=== PATIENT | male | born 1960 | race Caucasian/White ===

== ENCOUNTER 2016-11-22 19:34 | Observation (INO) | payer BC, OTHER ==
[~2016-11-22] VITALS: Ht 167.6 cm; Wt 98.1 kg
[~2016-11-22 19:34] MED LIST: ATEN-173 PO; CHOL100010 PO; CLTP PO; FERR325T74 PO; GLUCTAB18 PO; MULT-506 PO; PRT/40 PO
--- NOTE | 2016-11-22 19:48 | EMERGENCY ROOM VISIT NOTE ---
History Report prepared by Oziel: John Whitehead Under the Supervision of: Dr. Mainor Gibbs M.D. First contact with patient: 19:38 Chief Complaint: ABDOMINAL PAIN Stated Complaint: PAIN IN RLQ History of Present Illness The patient is a 56 year old male who presents to the Emergency Room with complaints of persistent right lower quadrant abdominal pain that started mid- day yesterday. He says that he had a bowel movement at a truck stop, and then started driving again. A bit later, he started having the abdominal pain. The patient felt nauseated last night and from time to time, he has been feeling dizzy. He notes that breathing does exacerbate the pain. The patient denies any vomiting, diarrhea, fevers, shortness of breath, chest pain, urinary symptoms, or hematochezia. The patient did take Tylenol yesterday but it did not help. He has a history of a gastric bypass. The patient was here in May for a low iron count and was admitted. Source of History: patient Onset: Mid-day yesterday Position: abdomen (right-sided) Timing: other (persistent) Modifying Factors (Worsening): breathing Associated Symptoms: + nausea, No SOB, No chest pain, No diarrhea, No fevers , No hematochezia, No urinary symptoms, No vomiting Note: Associated symptoms: Intermittent dizziness. Review of Systems See HPI for pertinent positives & negatives. A total of 10 systems reviewed and were otherwise negative. Past Medical & Surgical Medical Problems: (1) Abdominal pain (2) Abdominal pain (3) Appendicitis (4) Dehydration (5) HTN (hypertension) (6) Perforated ulcer Surgical Problems: (1) H/O gastric bypass (2) S/P laparoscopic surgery Family History Heart disease Hypertension Social History Smoking Status: Never Smoker Alcohol Use: occasionally Marital Status: Occupation Status: employed Current/Historical Medications Scheduled Atenolol (Atenolol), 12.5 MG PO DAILY Cholecalciferol (Vitamin D), 4,000 INTER.UNIT PO WK Ferrous Gluconate (Ferrous Gluconate), 324 MG PO DAILY Multivitamin (Multivitamin), 1 TAB PO DAILY Pantoprazole (Pantoprazole Sodium), 40 MG PO DAILY Scheduled PRN Hydrocodone/Acetaminophen 5MG/325MG (Burns 5MG/325MG), 1-2 TABLET PO Q6 PRN for Pain Allergies Coded Allergies: No Known Allergies (Unverified , 11/09/14) Physical Exam Vital Signs Date Time Temp Pulse Resp B/P Pulse Ox O2 Delivery O2 Flow Rate FiO2 11/22/16 20:56 88 18 148/76 96 Room Air 11/22/16 19:37 37.1 92 18 153/82 95 Room Air Physical Exam GENERAL: Patient is uncomfortable-appearing and in mild distress. HEENT: No acute trauma, normocephalic atraumatic, mucous membranes moist, no nasal congestion, no scleral icterus. NECK: No stridor, no adenopathy, no meningismus, trachea is midline. LUNGS: No dyspnea. Clear to auscultation and equal bilaterally. No wheeze, no rhonchi. HEART: Regular rate and rhythm. No murmurs, rubs, gallops appreciated. ABDOMEN: Soft, right lower quadrant tenderness to palpation, bowel sounds positive, no masses appreciated, no peritonitis. BACK: No midline tenderness, no CVA tenderness EXTREMITIES: Normal motion all extremities, no cyanosis, no edema. NEUROLOGIC: Alert and oriented, no acute motor or sensory deficits, no focal weakness, cranial nerves grossly intact. SKIN: No rash, no jaundice, no diaphoresis. Medical Decision & Procedures ER Provider Diagnostic Interpretation: CT results are stated below per my interpretation and the radiologist's interpretation. CT OF THE ABDOMEN AND PELVIS WITH CONTRAST CLINICAL HISTORY: Right lower quadrant pain. COMPARISON STUDY: CT of the abdomen and pelvis November 09, 2014 and renal ultrasound March 09, 2015. TECHNIQUE: Following IV administration of 92 mL of Optiray-320, axial images of the abdomen and pelvis were obtained from the lung bases to the proximal femurs. Images were reviewed in the axial, sagittal, and coronal planes. IV contrast was administered without complication. CT DOSE: 628.56 mGy.cm FINDINGS: A small hiatal hernia is present. Note is made of findings consistent with gastric bypass. There is no evidence for a bowel obstruction. The gallbladder us surgically absent. The liver, spleen, adrenal glands and left kidney are normal. 2 right renal cysts are again noted. There is no free air, pneumatosis or portal venous gas. The appendix is mildly dilated, measuring 1 cm in caliber. There is mild periappendiceal infiltration. There is no free air or abscess. The wall of the appendix is mildly thickened. No lymphadenopathy is present. There is extensive sigmoid diverticulosis without evidence for acute diverticulitis. The bladder is underdistended. Bladder wall thickening is again noted. There is a small fat-containing left inguinal hernia. Mild dilatation of the proximal celiac axis is unchanged. No suspicious skeletal lesions are identified. IMPRESSION: 1. Findings consistent with acute appendicitis. No free air or abscess. 2. Nonspecific bladder wall thickening which is accentuated by underdistention. Electronically signed by: Deshawn Schmitt M.D. 11/22/2016 8:36 PM Dictated Date/Time: 11/22/2016 8:30 PM Laboratory Results 11/22/16 20:00 Red Blood Count 5.10, Mean Corpuscular Volume 83.3, Mean Corpuscular Hemoglobin 28.2, Mean Corpuscular Hemoglobin Concent 33.9, Mean Platelet Volume 11.3, Neutrophils (%) (Auto) 75.8, Lymphocytes (%) (Auto) 13.0, Monocytes (%) (Auto) 10.4, Eosinophils (%) (Auto) 0.3, Basophils (%) (Auto) 0.2, Neutrophils # (Auto ) 7.91, Lymphocytes # (Auto) 1.36, Monocytes # (Auto) 1.09, Eosinophils # (Auto ) 0.03, Basophils # (Auto) 0.02 11/22/16 20:00 Test 11/22/16 20:00 11/22/16 20:12 White Blood Count 10.44 K/uL (4.8-10.8) Red Blood Count 5.10 M/uL (4.7-6.1) Hemoglobin 14.4 g/dL (14.0-18.0) Hematocrit 42.5 % (42-52) Mean Corpuscular Volume 83.3 fL (80-100) Mean Corpuscular Hemoglobin 28.2 pg (25-34) Mean Corpuscular Hemoglobin Concent 33.9 g/dl (32-36) Platelet Count 160 K/uL (130-400) Mean Platelet Volume 11.3 fL (7.4-10.4) Neutrophils (%) (Auto) 75.8 % Lymphocytes (%) (Auto) 13.0 % Monocytes (%) (Auto) 10.4 % Eosinophils (%) (Auto) 0.3 % Basophils (%) (Auto) 0.2 % Neutrophils # (Auto) 7.91 K/uL (1.4-6.5) Lymphocytes # (Auto) 1.36 K/uL (1.2-3.4) Monocytes # (Auto) 1.09 K/uL (0.11-0.59) Eosinophils # (Auto) 0.03 K/uL (0-0.5) Basophils # (Auto) 0.02 K/uL (0-0.2) RDW Standard Deviation 50.5 fL (36.4-46.3) RDW Coefficient of Variation 16.6 % (11.5-14.5) Immature Granulocyte % (Auto) 0.3 % Immature Granulocyte # (Auto) 0.03 K/uL (0.00-0.02) Est Creatinine Clear Calc Drug Dose 111.7 ml/min Estimated GFR () 114.7 Estimated GFR (Non- 99.0 BUN/Creatinine Ratio 17.7 (10-20) Calcium Level 9.2 mg/dl (8.5-10.1) Total Bilirubin 0.6 mg/dl (0.2-1) Direct Bilirubin 0.2 mg/dl (0-0.2) Aspartate Amino Transf (AST/SGOT) 14 U/L (15-37) Alanine Aminotransferase (ALT/SGPT) 18 U/L (12-78) Alkaline Phosphatase 71 U/L (45-117) Total Protein 7.2 gm/dl (6.4-8.2) Albumin 3.9 gm/dl (3.4-5.0) Lipase 107 U/L (73-393) Bedside Hemoglobin 15.3 g/dl (14.0-18.0) Bedside Hematocrit 45 % (42-52) Bedside Sodium 142 mEq/L (135-144) Bedside Potassium 3.8 mEq/L (3.3-5.0) Bedside Chloride 106 mEq/L (101-112) Bedside Total CO2 23 mEq/l (24-31) Anion Gap 18.0 mmol/L (16-25) Bedside Blood Urea Nitrogen 14 mg/dl (7-18) Bedside Creatinine 0.7 mg/dl (0.6-1.3) Bedside Glucose (other) 97 mg/dl (70-99) Bedside Ionized Calcium (Jayro) 1.15 mmol/l (1.12-1.32) Laboratory results as reviewed by me. Medications Administered Medications (Trade) Dose Ordered Sig/Shon Route Start Time Stop Time Status Last Admin Dose Admin Sodium Chloride (Nss 1000ml) 1,000 ml @ 999 mls/hr Q1H1M STAT IV 11/22/16 19:50 11/22/16 20:50 DC 11/22/16 20:54 999 MLS/HR Cefoxitin Sodium (Mefoxin IV) 2,000 mg NOW STAT IV 11/22/16 20:43 11/22/16 20:44 DC 11/22/16 20:55 2,000 MG Hydromorphone HCl (Dilaudid Inj) 1 mg NOW STAT IV 11/22/16 20:49 11/22/16 20:51 DC 11/22/16 20:54 1 MG Ondansetron HCl (Zofran Inj) 4 mg NOW STAT IV 11/22/16 20:49 11/22/16 20:51 DC 11/22/16 20:54 4 MG ED Course 1939: The patient was evaluated in room C4. A complete history and physical exam was performed. 1949: Ordered NSS 1000 ml @ 999 mls/hr IV. 2042: Ordered Mefoxin IV 2000 mg IV. 2048: Ordered Zofran Inj 4 mg IV, Dilaudid Inj 1 mg IV. 2044: I discussed the patient with Dr. Delfino IRAHETA General Surgery - he will evaluate the patient for further treatment. 2045: I reevaluated the patient and he would like something for pain. Medical Decision Differential: Appendicitis, , MSK, Diverticulitis, UTI, Renal Colic, Bowel Obstruction, Aortic Pathology, amongst other pathologies entertained. 56 yr old male with RLQ TTP and pain over last 24-48 hours. Labs look good but with exam felt CT required which revealed acute appendicitis. He is stable, not septic and doing well with some Dilaudid. Given Mefoxin and gen surg in to see pt and took him to OR. Consults Time Called: 2042 Consulting Physician: Dr. Delfino IRAHETA General Surgery Returned Call: 2044 I discussed the patient with Dr. Delfino IRAHETA General Surgery - he will evaluate the patient for further treatment. Impression Primary Impression: Acute appendicitis Scribe Attestation The scribe's documentation has been prepared under my direction and personally reviewed by me in its entirety. I confirm that the note above accurately reflects all work, treatment, procedures, and medical decision making performed by me. Departure Information Dispostion Being Evaluated By Hospitalist Prescriptions Hydrocodone/Acetaminophen 5MG/325MG (Burns 5MG/325MG) Tab 1-2 TABLET PO Q6 Y for Pain, #30 TAB Prov: John Saleh D.O. 11/22/16 Referrals Jayden Awan PA-C (PCP) Patient Instructions My [facility] Problem Qualifiers Primary Impression: Acute appendicitis Acute appendicitis type: with localized peritonitis Qualified Codes: K35.3 - Acute appendicitis with localized peritonitis
[2016-11-22] MEDS ORDERED: SODIUM CHLORIDE 0.9% 1000ML 1,000 ML IV STA (19:50)
[2016-11-22] MEDS ORDERED: OPTIRAY 320 IV PRN (20:00)
[2016-11-22 20:16] LABS: BASO % 0.2 %; BASO ABS # 0.02 K/uL (0-0.2); COMPLETE YES; EOS % 0.3 %; HEMATOCRIT 42.5 % (42-52); IG% 0.3 %; LYMPH ABS # 1.36 K/uL (1.2-3.4); MEAN CELL VOLUME 83.3 fL (80-100); MEAN CORPUSCULAR HEMOGLOBIN 28.2 pg (25-34); MEAN CORPUSCULAR HGB CONC 33.9 g/dl (32-36); MEAN PLATELET VOLUME 11.3 fL (7.4-10.4); MONO % 10.4 %; NEUT % 75.8 %; PLATELET COUNT 160 K/uL (130-400); WHITE BLOOD COUNT 10.44 K/uL (4.8-10.8)
[2016-11-22 20:24] LABS: ISTAT CREATININE 0.7 mg/dl (0.6-1.3); ISTAT HEMOGLOBIN 15.3 g/dl (14.0-18.0); ISTAT IONIZED CALCIUM 1.15 mmol/l (1.12-1.32)
[2016-11-22] MEDS ORDERED: CHOL200010 PO (20:28)
[2016-11-22] MEDS ORDERED: TNR25 PO (20:28)
[2016-11-22] MEDS ORDERED: FERR325T18 PO (20:28)
--- NOTE | 2016-11-22 20:38 | DIAGNOSTIC IMAGING REPORT ---
CT OF THE ABDOMEN AND PELVIS WITH CONTRAST CLINICAL HISTORY: Right lower quadrant pain. COMPARISON STUDY: CT of the abdomen and pelvis November 09, 2014 and renal ultrasound March 09, 2015. TECHNIQUE: Following IV administration of 92 mL of Optiray-320, axial images of the abdomen and pelvis were obtained from the lung bases to the proximal femurs. Images were reviewed in the axial, sagittal, and coronal planes. IV contrast was administered without complication. CT DOSE: 628.56 mGy.cm FINDINGS: A small hiatal hernia is present. Note is made of findings consistent with gastric bypass. There is no evidence for a bowel obstruction. The gallbladder us surgically absent. The liver, spleen, adrenal glands and left kidney are normal. 2 right renal cysts are again noted. There is no free air, pneumatosis or portal venous gas. The appendix is mildly dilated, measuring 1 cm in caliber. There is mild periappendiceal infiltration. There is no free air or abscess. The wall of the appendix is mildly thickened. No lymphadenopathy is present. There is extensive sigmoid diverticulosis without evidence for acute diverticulitis. The bladder is underdistended. Bladder wall thickening is again noted. There is a small fat-containing left inguinal hernia. Mild dilatation of the proximal celiac axis is unchanged. No suspicious skeletal lesions are identified. IMPRESSION: 1. Findings consistent with acute appendicitis. No free air or abscess. 2. Nonspecific bladder wall thickening which is accentuated by underdistention. Electronically signed by: Deshawn Schmitt M.D. 11/22/2016 8:36 PM Dictated Date/Time: 11/22/2016 8:30 PM
[2016-11-22 20:42] LABS: BUN/CREATININE RATIO 17.7 (10-20); CALCIUM 9.2 mg/dl (8.5-10.1); CREATININE 0.79 mg/dl (0.60-1.40); POTASSIUM 3.8 mmol/L (3.5-5.1)
[2016-11-22] MEDS ORDERED: CEFOXITIN SOD 2 GM VIAL IV STA (20:43)
[2016-11-22] MEDS ORDERED: ONDANSETRON INJ 2 MG/ML 2 ML VIAL IV STA (20:49)
[2016-11-22] MEDS ORDERED: ONDANSETRON INJ 2 MG/ML 2 ML VIAL ONE ×2 (20:49→23:37)
[2016-11-22] MEDS ORDERED: HYDROmorphone INJ 1 MG/ML SYR ONE (20:49)
[2016-11-22] MEDS ORDERED: HYDROmorphone INJ 1 MG/ML SYR IV STA (20:49)
--- NOTE | 2016-11-22 21:02 | History and Physical ---
History & Physical Date Nov 22, 2016. Chief Complaint abdominal pain History of Present Illness The patient is a 56 year old male with complaints of mid abdominal pain starting yesterday...worsening and pain now more RLQ. Past Medical/Surgical History Medical Problems: (1) Abdominal pain (2) Abdominal pain (3) Appendicitis (4) Dehydration (5) HTN (hypertension) (6) Perforated ulcer Surgical Problems: (1) H/O gastric bypass (2) S/P laparoscopic surgery Additional History Hepatic Disease: No Endocrine Disorder: No Kidney Disease: No Hypertension: Yes Heart Disease: No Bleeding Tendencies: No Infectious Diseases: No Allergies Coded Allergies: No Known Allergies (Unverified , 11/09/14) Home Medications Scheduled Atenolol (Atenolol), 12.5 MG PO DAILY Cholecalciferol (Vitamin D), 4,000 INTER.UNIT PO WK Ferrous Gluconate (Ferrous Gluconate), 324 MG PO DAILY Multivitamin (Multivitamin), 1 TAB PO DAILY Pantoprazole (Pantoprazole Sodium), 40 MG PO DAILY Physical Examination Skin: warm/dry Eyes: normal inspection, EOMI Head: normocephalic Neck: supple Respiratory/Chest: lungs clear Cardiovascular: regular rate, rhythm, no edema Abdomen / GI: + pertinent finding (diffuse ttp. tender RLQ. mild guarding.) Extremities: normal inspection Diagnosis acute appendicitis Plan of Treatment discussed options/risks of surgery bleeding/infection/abcess/dvt/pe/mi/injury to another organ/leakage etc... questions answered lap/possible open appendectomy tonight.
[2016-11-22] MEDS ORDERED: IV FLUIDS COMPLETED PRN (22:00)
[2016-11-22] MEDS ORDERED: HYDR-5688 PO (22:01)
--- NOTE | 2016-11-22 22:04 | Discharge Instructions ---
Discharge Instructions Admission Reason for Admission: Pain In Rlq Discharge Discharge Diagnosis / Problem: acute appendicitis Discharge Goals Goal(s): Decrease discomfort, Improve function Activity Recommendations Activity Limitations: as noted below Lifting Limitations: no more than 10 pounds Exercise/Sports Limitations: until after follow-up appointment May Resume Sexual Activity: after follow-up appointment Shower/Bathe: tomorrow . Instructions / Follow-Up Instructions / Follow-Up call [phone] for follow up appt with Dr. Saleh Current Hospital Diet Patient's current hospital diet: Discharge Diet Recommended Diet: Regular Diet Procedures Procedures Performed: lap appy Pending Studies Studies pending at discharge: yes (pathology report) List of pending studies: path report Medical Emergencies . Who to Call and When: Medical Emergencies: If at any time you feel your situation is an emergency, please call 911 immediately. . Non-Emergent Contact Non-Emergency issues call your: Primary Care Provider, Surgeon Call Non-Emergent contact if: temperature is above 101, your pain is not controlled, wound has increased drainage, wound has increased redness . "Provider Documentation" section prepared by John Saleh. VTE Core Measure Inpt VTE Proph given/why not?: Enoxaparin (Lovenox)SQ, SCD's
--- NOTE | 2016-11-22 22:05 | [facility] Operative Report ---
Operative Report Operative Date Nov 22, 2016. Pre-Operative Diagnosis acute appendicitis Post-Operative Diagnosis acute appendicitis Procedure(s) Performed lap appy Surgeon jt Findings acutely inflammed appendix Anesthesia get Complication(s) None Disposition Recovery Room / PACU I attest to the content of the Intraoperative Record and any orders documented therein. Any exceptions are noted below.
[2016-11-22] MEDS ORDERED: LIDOCAINE HCL 2% 2 ML VIAL (20MG/ML) ONE (22:08)
[2016-11-22] MEDS ORDERED: MIDAZOLAM HCL 1 MG/ML 2ML VIAL ONE (22:08)
[2016-11-22] MEDS ORDERED: FENTANYL CITRATE INJ 50 MCG/1 ML 2 ML VIAL ONE ×2 (22:08→23:37)
[2016-11-22] MEDS ORDERED: PROPOFOL IV EMULSION 10 MG/ML 20 ML VIAL IV ONE (22:08)
[2016-11-22] MEDS ORDERED: LABETALOL HCL IV 5 MG/ML 20ML IV PRN (22:30)
[2016-11-22] MEDS ORDERED: ONDANSETRON INJ 2 MG/ML 2 ML VIAL IV PRN (22:30)
[2016-11-22] MEDS ORDERED: PROMETHAZINE HCL INJ 12.5 MG in SODIUM CHLORIDE 0.9% 50ML 50 ML IV PRN (22:30)
[2016-11-22] MEDS ORDERED: HYDROmorphone INJ 2 MG/ML SYR/VIAL IV PRN (22:30)
[2016-11-22] MEDS ORDERED: ATROPINE SULFATE 0.1 MG/ML 5ML SYR IV PRN (22:30)
[2016-11-22] MEDS ORDERED: GLYCOPYRROLATE INJ 0.2 MG/ML VIAL ONE (23:37)
[2016-11-22] MEDS ORDERED: METOCLOPRAMIDE HCL INJ 5 MG/ML 2 ML VIAL ONE (23:37)
[2016-11-22] MEDS ORDERED: NEOSTIGMINE METHYLSULFATE 5 MG/5 ML SYR ONE (23:37)
[2016-11-22] MEDS ORDERED: BUPIVACAINE/EPINEPHRINE 0.5% MPF 1:200,000 30 ML VIAL INJ ONE (23:52)
[2016-11-23] VITALS (11 sets, daily range): BP systolic 122–148; BP diastolic 71–90; PULSE 88–107; TEMP 36.7–37.7; O2SAT 92–95; Ht 167.6 cm; Wt 98.1 kg
[2016-11-23] MEDS ORDERED: MEPERIDINE HCL 25 MG/ML CARP IV PRN
--- NOTE | 2016-11-23 00:12 | OPERATIVE REPORT ---
DATE OF OPERATION: 11/22/2016 PREOPERATIVE DIAGNOSIS: Acute appendicitis. POSTOPERATIVE DIAGNOSIS: Same. PROCEDURE: Laparoscopic appendectomy. SURGEON: Dr. Saleh. ESTIMATED BLOOD LOSS: 10 mL COMPLICATIONS: No immediate. ANESTHESIA: General. The patient tolerated the procedure well. OPERATIVE NOTE: After informed consent was obtained, the patient was taken to the operating suite and placed in the supine position. After successful intubation, the left arm was tucked and the lower abdomen was shaved and sterilely prepped and draped in the usual fashion. A periumbilical incision was made with an 11 blade scalpel and carried down through the soft tissue using electrocautery. The anterior rectus fascia was opened using electrocautery and two #0 Vicryl stay sutures were placed. Peritoneum was entered using blunt finger penetration and a finger sweep was performed to take down adhesions. A 12-mm Miguel Angel trocar was placed and the abdomen was insufflated to 18 mmHg. Laparoscope was inserted and the abdomen examined 360 degrees. A left lower quadrant 12-mm port and a suprapubic 5-mm port were all placed under direct vision. The patient was airplaned to the left and placed in a slight Trendelenburg. We went to the right lower quadrant, immediately had an ischemic acutely inflamed appendix. The cecum looked normal at the terminal ileum. I did run the terminal ileum backwards for several feet and did not see any other abnormality. There was no free fluid in the pelvis and I ruptured the appendix. I was able to grasp the appendix at its mid body and elevate it from the side wall. A LUL purple cartridge linear stapler was used to transect the mesoappendix as well as the appendix itself at its base with the cecum. After doing this, it was placed into an EndoCatch bag. We did look around the rest of the abdomen. The patient had a history of prior gastric bypass, I was unable to clearly see his upper abdominal anatomy due to his size. Liver looked normal as did the small and large bowels. I saw no evidence of inguinal or ventral hernias. This completed the procedure. There was adequate hemostasis. The trocars were removed as was the appendix. The abdomen was desufflated. The fascia of the camera port was closed using 0 Vicryl in a [id number] fashion. All the wounds were irrigated and closed using 4-0 Monocryl. Marcaine was injected around them for postoperative analgesia and skin glue used as dressing. The patient was awakened, extubated, and transferred to recovery in stable condition. I attest to the content of the Intraoperative Record and any orders documented therein. Any exceptio ns are noted below.
[2016-11-23] MEDS ORDERED: LACTATED RINGER'S 1000ML 1,000 ML IV SCH (00:16)
[2016-11-23] MEDS ORDERED: ONDANSETRON INJ 2 MG/ML 2 ML VIAL IV PRN (00:30)
[2016-11-23] MEDS ORDERED: MoRPHine SULFATE 10 MG/ML CARP/VIAL IV PRN (00:30)
[2016-11-23] MEDS ORDERED: HYDROCODONE/ACETAMOPHEN 5/325MG TAB PO PRN ×2 (00:30)
[2016-11-23] MEDS ORDERED: ACETAMINOPHEN 325 MG TAB PO PRN (00:30)
--- NOTE | 2016-11-23 00:36 | Anesthesiology Progress Note ---
Anesthesia Post Op Note Date & Time Nov 23, 2016 at 00:36 Vital Signs Pain Intensity: 0 Vital Signs Past 12 Hours Date Time Temp Pulse Resp B/P Pulse Ox O2 Delivery O2 Flow Rate FiO2 11/23/16 00:20 93 24 152/86 95 Mask 5 11/23/16 00:15 98 19 164/86 94 Mask 5 11/23/16 00:10 94 23 168/90 94 Mask 5 11/23/16 00:05 94 18 164/88 95 Mask 5 11/23/16 00:00 94 22 171/93 95 5 11/22/16 23:55 104 20 189/101 94 Mask 5 11/22/16 23:50 102 30 165/122 86 Mask 5 11/22/16 23:45 37.4 103 32 181/98 90 Mask 5 11/22/16 20:56 88 18 148/76 96 Room Air 11/22/16 19:37 37.1 92 18 153/82 95 Room Air Notes Mental Status: alert / awake / arousable, participated in evaluation Pt Amnestic to Procedure: Yes Nausea / Vomiting: adequately controlled Pain: adequately controlled Airway Patency, RR, SpO2: stable & adequate BP & HR: stable & adequate Hydration State: stable & adequate Anesthetic Complications: no major complications apparent
[2016-11-23] MEDS: LACTATED RINGER'S 1000ML 1,000 ML IV SCH ×3 (01:42→12:59)
[2016-11-23] MEDS: MoRPHine SULFATE 4 MG/ML 1 ML CARP\\VIAL IV PRN ×2 (03:16→07:43)
[2016-11-23 07:37] LABS: BASO % 0.1 %; BASO ABS # 0.01 K/uL (0-0.2); COMPLETE YES; HEMATOCRIT 39.2 % (42-52); IG% 0.3 %; LYMPH % 3.8 %; LYMPH ABS # 0.45 K/uL (1.2-3.4); MEAN CELL VOLUME 84.5 fL (80-100); MEAN CORPUSCULAR HEMOGLOBIN 28.2 pg (25-34); MEAN CORPUSCULAR HGB CONC 33.4 g/dl (32-36); NEUT % 86.8 %; PLATELET COUNT 145 K/uL (130-400); RED BLOOD COUNT 4.64 M/uL (4.7-6.1); WHITE BLOOD COUNT 11.93 K/uL (4.8-10.8)
[2016-11-23 07:47] LABS: INR 1.1 (0.9-1.1); PARTIAL THROMBOPLASTIN RATIO 1.1; PROTHROMBIN TIME (PATIENT) 12.3 SECONDS (9.0-12.0)
[2016-11-23 08:04] LABS: BUN/CREATININE RATIO 15.7 (10-20); CALCIUM 8.7 mg/dl (8.5-10.1); CREATININE 0.69 mg/dl (0.60-1.40); POTASSIUM 3.9 mmol/L (3.5-5.1)
[2016-11-23 08:09] LABS: ALB/GLOB RATIO 1.2 (0.9-2)
[2016-11-23] MEDS ORDERED: PANTOprazole SOD 40 MG TAB PO SCH (08:30)
--- NOTE | 2016-11-23 08:38 | Surgery Progress Note ---
Surgery Progress Note Date of Service Nov 23, 2016. Subjective Post OP Day: 1 + feeling well some laparoscopy gas pain. overall feeling well. nathaly liquids Objective Vital Signs: Date Time Temp Pulse Resp B/P Pulse Ox O2 Delivery O2 Flow Rate FiO2 11/23/16 07:16 37.3 98 18 146/90 94 Nasal Cannula 2.0 11/23/16 04:35 37.7 102 16 146/90 95 Room Air 11/23/16 03:30 37.7 107 16 138/80 94 Nasal Cannula 3.0 11/23/16 02:30 37.5 98 16 144/80 94 Nasal Cannula 3.0 11/23/16 02:00 36.9 94 16 148/80 94 Nasal Cannula 3.0 11/23/16 01:58 93 Nasal Cannula 11/23/16 01:43 36.7 99 18 129/71 93 Nasal Cannula 3.0 11/23/16 01:30 36.7 99 16 129/71 93 Nasal Cannula 3.0 11/23/16 01:12 103 19 138/68 91 Nasal Cannula 3 11/23/16 01:02 102 20 139/80 92 Nasal Cannula 3 11/23/16 00:50 95 19 141/76 90 Nasal Cannula 4 11/23/16 00:40 94 20 153/83 90 Nasal Cannula 4 11/23/16 00:30 36.7 96 20 159/82 90 Nasal Cannula 4 11/23/16 00:20 93 24 152/86 95 Mask 5 11/23/16 00:15 98 19 164/86 94 Mask 5 11/23/16 00:10 94 23 168/90 94 Mask 5 11/23/16 00:05 94 18 164/88 95 Mask 5 11/23/16 00:00 94 22 171/93 95 5 11/22/16 23:55 104 20 189/101 94 Mask 5 11/22/16 23:50 102 30 165/122 86 Mask 5 11/22/16 23:45 37.4 103 32 181/98 90 Mask 5 11/22/16 20:56 88 18 148/76 96 Room Air 11/22/16 19:37 37.1 92 18 153/82 95 Room Air General Appearance: no apparent distress Abdomen: non distended, soft Incision(s): clean, dry, intact Laboratory Results: Results Past 24 Hours Test 11/22/16 20:00 11/22/16 20:12 11/23/16 07:05 Range/Units White Blood Count 10.44 11.93 4.8-10.8 K/uL Red Blood Count 5.10 4.64 4.7-6.1 M/uL Hemoglobin 14.4 13.1 14.0-18.0 g/dL Hematocrit 42.5 39.2 42-52 % Mean Corpuscular Volume 83.3 84.5 80-100 fL Mean Corpuscular Hemoglobin 28.2 28.2 25-34 pg Mean Corpuscular Hemoglobin Concent 33.9 33.4 32-36 g/dl Platelet Count 160 145 130-400 K/uL Mean Platelet Volume 11.3 11.0 7.4-10.4 fL Neutrophils (%) (Auto) 75.8 86.8 % Lymphocytes (%) (Auto) 13.0 3.8 % Monocytes (%) (Auto) 10.4 9.0 % Eosinophils (%) (Auto) 0.3 0.0 % Basophils (%) (Auto) 0.2 0.1 % Neutrophils # (Auto) 7.91 10.36 1.4-6.5 K/uL Lymphocytes # (Auto) 1.36 0.45 1.2-3.4 K/uL Monocytes # (Auto) 1.09 1.07 0.11-0.59 K/uL Eosinophils # (Auto) 0.03 0.00 0-0.5 K/uL Basophils # (Auto) 0.02 0.01 0-0.2 K/uL RDW Standard Deviation 50.5 51.8 36.4-46.3 fL RDW Coefficient of Variation 16.6 16.6 11.5-14.5 % Immature Granulocyte % (Auto) 0.3 0.3 % Immature Granulocyte # (Auto) 0.03 0.04 0.00-0.02 K/uL Sodium Level 143 141 136-145 mmol/L Potassium Level 3.8 3.9 3.5-5.1 mmol/L Chloride Level 107 106 98-107 mmol/L Carbon Dioxide Level 23 23 21-32 mmol/L Anion Gap 13.0 18.0 12.0 3-11 mmol/L Blood Urea Nitrogen 14 11 7-18 mg/dl Creatinine 0.79 0.69 0.60-1.40 mg/dl Est Creatinine Clear Calc Drug Dose 111.7 127.9 ml/min Estimated GFR () 114.7 121.3 Estimated GFR (Non- 99.0 104.6 BUN/Creatinine Ratio 17.7 15.7 10-20 Random Glucose 94 121 70-99 mg/dl Calcium Level 9.2 8.7 8.5-10.1 mg/dl Total Bilirubin 0.6 1.7 0.2-1 mg/dl Direct Bilirubin 0.2 0-0.2 mg/dl Aspartate Amino Transf (AST/SGOT) 14 300 15-37 U/L Alanine Aminotransferase (ALT/SGPT) 18 226 12-78 U/L Alkaline Phosphatase 71 160 45-117 U/L Total Protein 7.2 6.3 6.4-8.2 gm/dl Albumin 3.9 3.4 3.4-5.0 gm/dl Lipase 107 73-393 U/L Bedside Hemoglobin 15.3 14.0-18.0 g/dl Bedside Hematocrit 45 42-52 % Bedside Sodium 142 135-144 mEq/L Bedside Potassium 3.8 3.3-5.0 mEq/L Bedside Chloride 106 101-112 mEq/L Bedside Total CO2 23 24-31 mEq/l Bedside Blood Urea Nitrogen 14 7-18 mg/dl Bedside Creatinine 0.7 0.6-1.3 mg/dl Bedside Glucose (other) 97 70-99 mg/dl Bedside Ionized Calcium (Jayro) 1.15 1.12-1.32 mmol/l Prothrombin Time 12.3 9.0-12.0 SECONDS Prothromb Time International Ratio 1.1 0.9-1.1 Activated Partial Thromboplast Time 28.7 21.0-31.0 SECONDS Partial Thromboplastin Ratio 1.1 Globulin 2.9 2.5-4.0 gm/dl Albumin/Globulin Ratio 1.2 0.9-2 Assessment & Plan pod #1 lap appy looks good will walk around/drink this am if does ok, can d/c home later today
[2016-11-23] MEDS ORDERED: ENOXAPARIN 40 MG/0.4 ML SYR SQ SCH ×2 (09:00)
[2016-11-23] MEDS ORDERED: HYDROmorphone INJ 0.5 MG/0.5 ML SYR IV ONE (15:29)
[2016-11-23] MEDS ORDERED: MEPERIDINE HCL 25 MG/ML CARP IV ONE (15:29)
[2016-11-23] MEDS ORDERED: LABETALOL HCL IV 5 MG/ML 20ML IV ONE (15:29)
--- NOTE | 2016-11-29 13:34 | DISCHARGE SUMMARY ---
DISCHARGE DIAGNOSIS: Acute appendicitis. SUMMARY: This 56-year-old white male who presented to the emergency room with abdominal pain progressing to his right lower quadrant. Workup revealed acute appendicitis at which point I was consulted. He was taken to the operating room in the siphon operator hours of 11/23/2016 and underwent a laparoscopic appendectomy. The procedure went without incident. He was admitted to the surgical floor for postoperative observation and symptom control. By the following morning he was feeling much better. His pain was improved. He was tolerating liquids and his pain was controlled. He was deemed stable for discharge at that time. He was discharged home on 11/23/2016 with written and oral discharge instructions. He was to followup with myself in the office within a 1-2 week period.
== END 2016-11-23 15:30 | disposition home or self-care (01) ==
LOC: ENRESERVTM → ENRESERVDT → C.EDB 19:35 → C.MSW 20:59
PROVIDERS: ADMIT Surgery; ATTEND Surgery
DX: K35.80 Unspecified acute appendicitis (principal); I10 Essential (primary) hypertension; Z79.899 Other long term (current) drug therapy; Z98.84 Bariatric surgery status; Z82.49 Family history of ischemic heart disease and other diseases of the circulatory system

== ENCOUNTER 2016-11-30 13:42 | Inpatient (IN) | payer BC ==
[~2016-11-30] VITALS: Ht 172.7 cm; Wt 93.2 kg
[~2016-11-30 13:42] MED LIST changes: -AMOX875T PO; -ONDA4TAB10 SL
[2016-11-30] MEDS ORDERED: SODIUM CHLORIDE 0.9% 1000ML 1,000 ML IV STA (14:01)
[2016-11-30] MEDS ORDERED: SODIUM CHLORIDE 0.9% 1000ML 500 ML IV STA (14:01)
[2016-11-30] MEDS ORDERED: OPTIRAY 320 IV PRN (14:30)
[2016-11-30] MEDS ORDERED: ONDANSETRON INJ 2 MG/ML 2 ML VIAL IV STA (14:46)
[2016-11-30] MEDS ORDERED: MoRPHine SULFATE 4 MG/ML 1 ML CARP\\VIAL IV STA (14:46)
[2016-11-30 14:48] LABS: INR 1.1 (0.9-1.1); PARTIAL THROMBOPLASTIN RATIO 1.3; PROTHROMBIN TIME (PATIENT) 12.3 SECONDS (9.0-12.0)
[2016-11-30 14:58] LABS: BUN/CREATININE RATIO 32.4 (10-20); CALCIUM 9.2 mg/dl (8.5-10.1); CREATININE 0.72 mg/dl (0.60-1.40); POTASSIUM 3.8 mmol/L (3.5-5.1)
[2016-11-30 15:00] LABS: ALB/GLOB RATIO 0.7 (0.9-2)
--- NOTE | 2016-11-30 15:31 | DIAGNOSTIC IMAGING REPORT ---
CT SCAN OF THE ABDOMEN AND PELVIS WITH IV CONTRAST CLINICAL HISTORY: Generalized abdominal pain. Fever. COMPARISON STUDY: Abdominal CT dated 11/22/2016. TECHNIQUE: Following the IV administration of 93 cc of Optiray 320, CT scan of the abdomen and pelvis is performed from the lung bases to the proximal femora. Images are reviewed in the axial, sagittal, and coronal planes. IV contrast was administered without complication. Automated dose control exposure was utilized. CT DOSE: 1005.16 mGycm FINDINGS: Lung bases: The heart is enlarged and without pericardial effusion. A calcified granuloma is noted at the right lung base. The lung bases are otherwise clear noting dependent atelectasis. Liver: The contrast-enhanced liver is normal in size, contour, and attenuation. There is mild to moderate intrahepatic biliary ductal dilatation. The hepatic veins and portal veins are patent. Gallbladder: Surgically absent noting clips in the gallbladder fossa. Spleen: Normal in size and attenuation. Pancreas: There is mild glandular atrophy. Scattered calcifications are noted in the pancreatic tail. Adrenal glands: Unremarkable. Kidneys: The contrast enhanced kidneys are normal in size and without hydronephrosis. The kidneys enhance symmetrically. 2 right renal cysts are again noted measuring up to 3.3 cm. Abdominal vasculature: The abdominal aorta is normal in course and caliber noting mild atherosclerotic calcification. Stomach and bowel: There is a moderate hiatal hernia. Postoperative changes are consistent with a history of Aviva-en-Y gastric bypass surgery. No bowel obstruction is seen. There is moderate colonic fecal retention. There is moderate to advanced sigmoid diverticulosis without CT evidence of acute diverticulitis. Moderate colonic fecal retention is observed. The appendix is surgically absent. Inflammatory stranding in the right lower quadrant is nonspecific, and some of this is likely related to recent appendectomy. There is a thick-walled and peripherally enhancing complex/multiloculated fluid collection identified in the right lower quadrant around the cecum. A loculation seen on axial image #265 measures approximately 3.3 x 3.3 x 4.3 cm. A loculation seen posterior to the cecum on image #264 measures 8.6 x 3.7 x 2.5 cm. Additional complex fluid is identified in the deep pelvis as seen on image #355. Peritoneum: There is no intraperitoneal free air or abdominal ascites. Foci of subcutaneous gas are present within the right lower quadrant pannus, likely related to recent surgery. Lymphadenopathy: None. Pelvic viscera: The bladder, prostate, and seminal vesicles are normal as visualized. There is a fat-containing left inguinal hernia. A right-sided varicocele is suspected. Skeletal structures: There is mild lumbosacral spondylosis. No lytic or blastic lesions are seen. IMPRESSION: 1. There are postoperative changes from interval appendectomy as compared to 11/22/2016. 2. There are complex/multiloculated fluid collections identified around the cecum in the right lower quadrant as detailed above. Although this could represent hematoma/seroma, these collections are concerning for abscesses given the clinical history of postoperative fever. 3. Additional complex fluid is identified in the pelvis. 4. There are postoperative changes consistent with Aviva-en-Y gastric bypass surgery. No bowel obstruction is seen. 5. Moderate to advanced sigmoid diverticulosis without CT evidence of acute diverticulitis. 6. Cardiomegaly. 7. Additional changes as above. Electronically signed by: Timo Rae M.D. 11/30/2016 3:30 PM Dictated Date/Time: 11/30/2016 3:18 PM
[2016-11-30] MEDS ORDERED: PIPERACILLIN/TAZOBACTAM 4.5 GM/100ML D5W IV STA (15:48)
--- NOTE | 2016-11-30 16:14 | EMERGENCY ROOM VISIT NOTE ---
History First contact with patient: 13:53 Chief Complaint: ABDOMINAL PAIN Stated Complaint: PAIN LRQ Nursing Triage Summary: Pt states he was referred by Dr Saleh, WBC elevated, Had appendix surgery last Monday night. History of Present Illness Patient is a 56-year-old white male who is one-week status post a lap appendectomy who presents to the emergency department from his surgeon's office for evaluation. Patient underwent uncomplicated laparoscopic appendectomy early in the morning on November 23 and was discharged later that day. He states that he has been feeling poorly since the surgery. He has had ongoing right lower quadrant pain which is not alleviated with hydrocodone or acetaminophen. He is having difficulty sleeping secondary to pain. He is not nauseous, but is anorexic. He has had intermittent low-grade fevers around 100 F and chills. He was constipated due to the narcotics and has been using MiraLAX which produced 2 bowel movements. He has not had any diarrhea. He has been increasing in his fluid intake, but reports decreased urine output and notes that his urine is dark. He had his one-week follow-up appointment with his surgeon today, and had blood work performed which showed a white count of 15 ,[address] Saleh attempted to get an outpatient CT scan but was unable to get authorized by insurance and thus sent the patient to the emergency department for evaluation. Review of Systems Review of systems as per HPI. All other systems reviewed were negative. 10 systems reviewed. Past Medical/Surgical History Medical Problems: (1) Abdominal abscess (2) Abdominal pain (3) Abdominal pain (4) Abdominal pain (5) Acute appendicitis (6) Appendicitis (7) Aspiration pneumonia (8) Dehydration (9) HTN (hypertension) (10) Perforated ulcer (11) Pneumonia (12) Reflux Esophagitis (13) Sepsis (14) Symptomatic anemia Surgical Problems: (1) H/O gastric bypass (2) History of laparoscopic appendectomy (3) S/P laparoscopic surgery Electronic medical records are reviewed and summarized as above/below. See Problem List. Family History Heart disease Hypertension Social History Smoking Status: Never Smoker Alcohol Use: occasionally Marital Status: Occupation Status: employed Current/Historical Medications Scheduled Atenolol (Atenolol), 12.5 MG PO DAILY Cholecalciferol (Vitamin D), 4,000 INTER.UNIT PO WK Ferrous Gluconate (Ferrous Gluconate), 324 MG PO DAILY Multivitamin (Multivitamin), 1 TAB PO DAILY Pantoprazole (Pantoprazole Sodium), 40 MG PO DAILY Allergies Coded Allergies: No Known Allergies (Unverified , 11/09/14) Physical Exam Vital Signs Date Time Temp Pulse Resp B/P Pulse Ox O2 Delivery O2 Flow Rate FiO2 11/30/16 15:21 85 16 144/81 94 Room Air 11/30/16 13:45 36.7 89 17 129/85 95 Room Air Physical Exam CONSTITUTIONAL: Patient is an uncomfortable-appearing 56-year-old white male who is awake and alert and in no acute distress. Vital signs are stable. He is afebrile. EYES: Pupils equal, round, reactive to light and accommodation. EOMs intact without nystagmus. Sclera are anicteric. ENT: Tympanic membranes intact, with normal landmarks. External canals are clear. Oral and nasopharynx are clear. Mucous membranes are moist, no lesions , tongue and gums appear normal. NECK: Supple without lymphadenopathy. No thyromegaly. No meningeal signs. Full active range of motion without discomfort. CARDIOVASCULAR: Regular rate and rhythm, with normal S1 and S2, no murmur or gallop or rub is heard. No carotid bruits auscultated. No JVD. Peripheral pulses easy to palpable. RESPIRATORY: Breath sounds equal and clear to auscultation without wheezes, rales, or rhonchi heard. Full and equal chest expansion without accessory muscle use or retractions. GI: Lower abdominal laparoscopic surgical incisions are well healing and intact. Slight ecchymosis is noted around the umbilicus. Bowel sounds are present. Abdomen is soft, nondistended and tender to percussion and palpation in the right lower quadrant, with guarding. No organomegaly. No pulsatile masses. MUSCULOSKELETAL: Full range of motion of extremities x 4 with good strength. No cyanosis, edema, joint tenderness or swelling. No deformity. INTEGUMENTARY: No lesions or rash, normal skin turgor. NEUROLOGICAL: Alert, oriented, and cooperative. Cranial nerves, sensation and strength grossly intact. Pupils round, equal, and react to light, EOMs are full. LYMPH: No lymphadenopathy. Medical Decision & Procedures ER Provider Diagnostic Interpretation: CT SCAN OF THE ABDOMEN AND PELVIS WITH IV CONTRAST CLINICAL HISTORY: Generalized abdominal pain. Fever. COMPARISON STUDY: Abdominal CT dated 11/22/2016. TECHNIQUE: Following the IV administration of 93 cc of Optiray 320, CT scan of the abdomen and pelvis is performed from the lung bases to the proximal femora. Images are reviewed in the axial, sagittal, and coronal planes. IV contrast was administered without complication. Automated dose control exposure was utilized. CT DOSE: 1005.16 mGycm FINDINGS: Lung bases: The heart is enlarged and without pericardial effusion. A calcified granuloma is noted at the right lung base. The lung bases are otherwise clear noting dependent atelectasis. Liver: The contrast-enhanced liver is normal in size, contour, and attenuation. There is mild to moderate intrahepatic biliary ductal dilatation. The hepatic veins and portal veins are patent. Gallbladder: Surgically absent noting clips in the gallbladder fossa. Spleen: Normal in size and attenuation. Pancreas: There is mild glandular atrophy. Scattered calcifications are noted in the pancreatic tail. Adrenal glands: Unremarkable. Kidneys: The contrast enhanced kidneys are normal in size and without hydronephrosis. The kidneys enhance symmetrically. 2 right renal cysts are again noted measuring up to 3.3 cm. Abdominal vasculature: The abdominal aorta is normal in course and caliber noting mild atherosclerotic calcification. Stomach and bowel: There is a moderate hiatal hernia. Postoperative changes are consistent with a history of Aviva-en-Y gastric bypass surgery. No bowel obstruction is seen. There is moderate colonic fecal retention. There is moderate to advanced sigmoid diverticulosis without CT evidence of acute diverticulitis. Moderate colonic fecal retention is observed. The appendix is surgically absent. Inflammatory stranding in the right lower quadrant is nonspecific, and some of this is likely related to recent appendectomy. There is a thick-walled and peripherally enhancing complex/multiloculated fluid collection identified in the right lower quadrant around the cecum. A loculation seen on axial image #265 measures approximately 3.3 x 3.3 x 4.3 cm. A loculation seen posterior to the cecum on image #264 measures 8.6 x 3.7 x 2.5 cm. Additional complex fluid is identified in the deep pelvis as seen on image #355. Peritoneum: There is no intraperitoneal free air or abdominal ascites. Foci of subcutaneous gas are present within the right lower quadrant pannus, likely related to recent surgery. Lymphadenopathy: None. Pelvic viscera: The bladder, prostate, and seminal vesicles are normal as visualized. There is a fat-containing left inguinal hernia. A right-sided varicocele is suspected. Skeletal structures: There is mild lumbosacral spondylosis. No lytic or blastic lesions are seen. IMPRESSION: 1. There are postoperative changes from interval appendectomy as compared to 11/22/2016. 2. There are complex/multiloculated fluid collections identified around the cecum in the right lower quadrant as detailed above. Although this could represent hematoma/seroma, these collections are concerning for abscesses given the clinical history of postoperative fever. 3. Additional complex fluid is identified in the pelvis. 4. There are postoperative changes consistent with Aviva-en-Y gastric bypass surgery. No bowel obstruction is seen. 5. Moderate to advanced sigmoid diverticulosis without CT evidence of acute diverticulitis. 6. Cardiomegaly. 7. Additional changes as above. Laboratory Results 11/30/16 14:24 11/30/16 14:24 Test 11/30/16 14:20 11/30/16 14:24 Urine Color DK YELLOW Urine Appearance CLEAR (CLEAR) Urine pH 5.5 (4.5-7.5) Urine Specific Nelson > 1.045 (1.000-1.030) Urine Protein 2+ (NEG) Urine Glucose (UA) NEG (NEG) Urine Ketones 3+ (NEG) Urine Occult Blood NEG (NEG) Urine Nitrite NEG (NEG) Urine Bilirubin NEG (NEG) Urine Urobilinogen POS (NEG) Urine Leukocyte Esterase NEG (NEG) Urine WBC (Auto) 1-5 /hpf (0-5) Urine RBC (Auto) 0-4 /hpf (0-4) Urine Hyaline Casts (Auto) 5-10 /lpf (0-5) Urine Epithelial Cells (Auto) >30 /lpf (0-5) Urine Bacteria (Auto) NEG (NEG) Red Blood Count 4.90 M/uL (4.7-6.1) Mean Corpuscular Volume 83.9 fL (80-100) Mean Corpuscular Hemoglobin 27.3 pg (25-34) Mean Corpuscular Hemoglobin Concent 32.6 g/dl (32-36) RDW Standard Deviation 51.7 fL (36.4-46.3) RDW Coefficient of Variation 16.7 % (11.5-14.5) Mean Platelet Volume 10.8 fL (7.4-10.4) Prothrombin Time 12.3 SECONDS (9.0-12.0) Prothromb Time International Ratio 1.1 (0.9-1.1) Activated Partial Thromboplast Time 33.0 SECONDS (21.0-31.0) Partial Thromboplastin Ratio 1.3 Anion Gap 7.0 mmol/L (3-11) Est Creatinine Clear Calc Drug Dose 123.9 ml/min Estimated GFR () 119.2 Estimated GFR (Non- 102.8 BUN/Creatinine Ratio 32.4 (10-20) Bedside Lactic Acid Venous 0.84 mmol/L (0.90-1.70) Calcium Level 9.2 mg/dl (8.5-10.1) Total Bilirubin 0.8 mg/dl (0.2-1) Aspartate Amino Transf (AST/SGOT) 18 U/L (15-37) Alanine Aminotransferase (ALT/SGPT) 37 U/L (12-78) Alkaline Phosphatase 109 U/L (45-117) Total Protein 7.6 gm/dl (6.4-8.2) Albumin 3.1 gm/dl (3.4-5.0) Globulin 4.5 gm/dl (2.5-4.0) Albumin/Globulin Ratio 0.7 (0.9-2) Medications Administered Medications (Trade) Dose Ordered Sig/Shon Route Start Time Stop Time Status Last Admin Dose Admin Sodium Chloride 500 ml @ 999 mls/hr Q31M STAT IV 11/30/16 14:01 11/30/16 14:31 DC 11/30/16 14:40 999 MLS/HR Sodium Chloride (Nss 1000ml) 1,000 ml @ 200 mls/hr Q5H STAT IV 11/30/16 14:01 11/30/16 19:00 11/30/16 15:16 200 MLS/HR Morphine Sulfate (MoRPHine SULFATE INJ) 4 mg NOW STAT IV 11/30/16 14:46 11/30/16 14:48 DC 11/30/16 15:18 4 MG Ondansetron HCl (Zofran Inj) 4 mg NOW STAT IV 11/30/16 14:46 11/30/16 14:48 DC 11/30/16 15:18 4 MG Piperacillin Sod/ Tazobactam Sod (Zosyn Iv) 4.5 gm NOW STAT IV 11/30/16 15:48 11/30/16 15:49 DC 11/30/16 16:40 4.5 GM ED Course The patient was seen and examined as above. Old records were reviewed. IV access was obtained and additional laboratory studies were collected including CMP, PT/PTT, [id number] lactic acid, urinalysis and blood cultures 2. He was hydrated with normal saline solution and medicated with morphine and Zofran IV. CT scan of the abdomen and pelvis with IV contrast was ordered. As noted above, the patient's white count was 15,900 when his labs were performed at 10:30 this morning. Electrolytes: Sodium 143, potassium 3.8, chloride 110, carbon dioxide 26, BUN 23 and creatinine 0.72. [id number] lactic acid is normal at 0.84. Liver functions are not elevated. Coags are within normal limits. CT scan demonstrated complex, multiloculated fluid collections in the right lower quadrant, likely representing an abscess. After CT scan findings were noted, the patient was given Zosyn 4.5 g IV. The results of the patient's CT scan were discussed with Dr. Saleh. He will admit the patient to the hospital for IV antibiotics and surgical intervention. Please refer to his H&P for further information. Medical Decision Patient is a 56-year-old white male one week status post laparoscopic appendectomy who has had persistent right lower quadrant pain with associated fevers. Differential diagnosis includes perforation, abscess, bowel obstruction , hematoma, seroma, hernia, among others. Impression Primary Impression: Abscess, intra-abdominal, postoperative Departure Information Dispostion Admitted as an inpatient Referrals Jayden Awan PA-C (PCP) Patient Instructions [facility] Problem Qualifiers Primary Impression: Abscess, intra-abdominal, postoperative Encounter type: initial encounter Qualified Codes: T81.4XXA - Infection following a procedure, initial encounter; K65.1 - Peritoneal abscess
[2016-11-30] MEDS ORDERED: ACETAMINOPHEN 325 MG TAB PO PRN (16:15)
[2016-11-30] MEDS ORDERED: ONDANSETRON INJ 2 MG/ML 2 ML VIAL IV PRN (16:15)
[2016-11-30] MEDS ORDERED: HYDROCODONE/ACETAMOPHEN 5/325MG TAB PO PRN ×2 (16:15)
[2016-11-30] MEDS ORDERED: MoRPHine SULFATE 10 MG/ML CARP/VIAL IV STA (16:16)
--- NOTE | 2016-11-30 16:17 | History and Physical ---
History & Physical Date & Time of Service: Nov 30, 2016 at 16:12 Chief Complaint: Pain Lrq Primary Care Physician: Jayden Awan PA-C History of Present Illness Source: patient pt 1 week s/p susie bree seen in office today complaining of persistent RLQ discomfort, low grade fever and malaise. eating but poor appetite. no emesis. bowels moving. obtain labs showing a wbc of 15,000....obtained a ct which shows abdominal abcess. Past Medical/Surgical History Medical Problems: (1) Abdominal pain Status: Resolved (2) Abdominal pain Status: Resolved (3) Abdominal pain Status: Resolved (4) Acute appendicitis Status: Resolved (5) Aspiration pneumonia Status: Resolved (6) Dehydration Status: Resolved (7) HTN (hypertension) Status: Chronic (8) Perforated ulcer Status: Resolved (9) Pneumonia Status: Resolved (10) Reflux Esophagitis Status: Chronic (11) Sepsis Status: Resolved (12) Symptomatic anemia Status: Resolved Surgical Problems: (1) H/O gastric bypass Status: Resolved (2) History of laparoscopic appendectomy Status: Resolved (3) S/P laparoscopic surgery Permanent Comment: for perforated ulcer in 2010 Status: Resolved Family History Heart disease Hypertension Social History Smoking Status: Never Smoker Marital Status: Housing status: lives with family Occupational Status: employed Immunizations History of Influenza Vaccine: Yes History of Tetanus Vaccine?: Yes Tetanus Immunization Date: Sep 29, 2007 History of Pneumococcal: No History of Hepatitis B Vaccine: Yes Allergies Coded Allergies: No Known Allergies (Unverified , 11/09/14) Home Medications Scheduled Atenolol (Atenolol), 12.5 MG PO DAILY Cholecalciferol (Vitamin D), 4,000 INTER.UNIT PO WK Ferrous Gluconate (Ferrous Gluconate), 324 MG PO DAILY Multivitamin (Multivitamin), 1 TAB PO DAILY Pantoprazole (Pantoprazole Sodium), 40 MG PO DAILY Review of Systems Constitutional: + chills, No fatigue, No fever, No problem reported, No sweats , No weakness, No weight loss Abdomen: + pain Physical Exam Vital Signs Date Time Temp Pulse Resp B/P Pulse Ox O2 Delivery O2 Flow Rate FiO2 11/30/16 15:21 85 16 144/81 94 Room Air 11/30/16 13:45 36.7 89 17 129/85 95 Room Air General Appearance: no apparent distress Head: normocephalic Eyes: normal inspection, PERRL Neck: supple Respiratory/Chest: lungs clear Cardiovascular: regular rate, rhythm Abdomen/GI: soft, + tenderness, + pertinent finding (RLQ ttp but no peritoneal signs) Neurologic/Psych: alert, oriented x 3 Skin: normal color, warm/dry Diagnostics Laboratory Results Results Past 24 Hours Test 11/30/16 14:24 Range/Units Prothrombin Time 12.3 9.0-12.0 SECONDS Prothromb Time International Ratio 1.1 0.9-1.1 Activated Partial Thromboplast Time 33.0 21.0-31.0 SECONDS Partial Thromboplastin Ratio 1.3 Sodium Level 143 136-145 mmol/L Potassium Level 3.8 3.5-5.1 mmol/L Chloride Level 110 98-107 mmol/L Carbon Dioxide Level 26 21-32 mmol/L Anion Gap 7.0 3-11 mmol/L Blood Urea Nitrogen 23 7-18 mg/dl Creatinine 0.72 0.60-1.40 mg/dl Est Creatinine Clear Calc Drug Dose 123.9 ml/min Estimated GFR () 119.2 Estimated GFR (Non- 102.8 BUN/Creatinine Ratio 32.4 10-20 Random Glucose 141 70-99 mg/dl Bedside Lactic Acid Venous 0.84 0.90-1.70 mmol/L Calcium Level 9.2 8.5-10.1 mg/dl Total Bilirubin 0.8 0.2-1 mg/dl Aspartate Amino Transf (AST/SGOT) 18 15-37 U/L Alanine Aminotransferase (ALT/SGPT) 37 12-78 U/L Alkaline Phosphatase 109 45-117 U/L Total Protein 7.6 6.4-8.2 gm/dl Albumin 3.1 3.4-5.0 gm/dl Globulin 4.5 2.5-4.0 gm/dl Albumin/Globulin Ratio 0.7 0.9-2 Microbiology Results 11/30/16 Blood Culture, Latanya Batch Pending 11/30/16 Blood Culture, Latanya Batch Pending Diagnostic Radiology ct scan showing abdominal abcess Impression Assessment and Plan 1 week s/p appendicitis with abcess will admit for IV antibiotics pt nontoxic. IR unavailable to drain. will plan laparoscopy with abdominal washout and drain placement in AM. Level of Care Med/Surg VTE Prophylaxis VTE Risk Assessment Done? Y/N: Yes Risk Level: Moderate Given or contraindicated: Enoxaparin (Lovenox)SEVERO, T.E.Marcelino Parks
[2016-11-30] MEDS ORDERED: PIPERACILL/TAZOBAC CONSULT ACTIVE PRN (16:30)
[2016-11-30 17:10] LABS: URINE APPEARANCE CLEAR (CLEAR); URINE COLOR DK YELLOW; URINE EPITHELIAL CELL AUTO >30 /lpf (0-5); URINE NITRITE NEG (NEG); URINE PH 5.5 (4.5-7.5); URINE SPECIFIC GRAVITY > 1.045 (1.000-1.030); UROBILINOGEN POS (NEG)
[2016-11-30 17:20] LABS: HEMATOCRIT 41.1 % (42-52); MEAN CELL VOLUME 83.9 fL (80-100); MEAN CORPUSCULAR HEMOGLOBIN 27.3 pg (25-34); MEAN CORPUSCULAR HGB CONC 32.6 g/dl (32-36); MEAN PLATELET VOLUME 10.8 fL (7.4-10.4); PLATELET COUNT 318 K/uL (130-400); WHITE BLOOD COUNT 15.83 K/uL (4.8-10.8)
[2016-11-30 17:22] LABS: MANUAL MICROSCOPIC REQUIRED? NO; REVIEW REQ? NO; URINE BILIRUBIN NEG (NEG)
[2016-11-30] MEDS: MoRPHine SULFATE 2 MG/ML CARP IV PRN ×2 (17:56→23:26)
[2016-11-30 18:00] VITALS: BP 141/85; PULSE 100; TEMP 37.5; O2SAT 92; Ht 172.7 cm; Wt 93.2 kg
[2016-11-30] MEDS: D5W AND 1/2NSS + 20MEQ KCL 1,000 ML IV SCH (18:24)
--- NOTE | 2016-11-30 20:40 | Anesthesiology Progress Note ---
Anesthesia Progress Note Date of Service Nov 30, 2016. Progress Notes Mr. Carroll is scheduled for a lab abdominal washout with drain placement by Dr. Saleh on 12/01/16. He had an appendectomy on 11/15/16 without incident and now presents with intraabdominal infection. PSH significant for appy, gastric bypass and laparoscopy for perforated ulcer. NKDA. PMH significant for GERD, HTN. Patient is a never smoker and can walk stairs without SOB or CP. EKG showed sinus tach with ST and T wave abnormalities but no changes when compared to ECG taken . Airway exam notable for short mandible with MP 3. Per last anesthesia record for appy, patient a grade 3 view with a MAC 3 blade. Attending anesthesiologist wrote he suggests either a MAC 4 or glidescope with next intubation. Patient told to be NPO after midnight. Consent obtained for GETA. All questions answered.
[2016-11-30] MEDS: PIPERACILL/TAZOBAC IV 3.375 GM in DEXTROSE 5% 100ML 100 ML IV SCH (21:31)
[2016-11-30 23:52] VITALS: BP 131/77; PULSE 95; TEMP 36.9; O2SAT 93
[2016-12-01] VITALS (7 sets, daily range): BP systolic 126–156; BP diastolic 76–80; PULSE 76–102; TEMP 36.6–37.5; O2SAT 92–95
[2016-12-01] MEDS: D5W AND 1/2NSS + 20MEQ KCL 1,000 ML IV SCH ×3 (01:40→17:04)
[2016-12-01] MEDS: MoRPHine SULFATE 2 MG/ML CARP IV PRN ×7 (01:40→13:19)
[2016-12-01] MEDS: PIPERACILL/TAZOBAC IV 3.375 GM in DEXTROSE 5% 100ML 100 ML IV SCH ×3 (05:25→22:00)
[2016-12-01 06:02] LABS: BASO % 0.2 %; BASO ABS # 0.03 K/uL (0-0.2); COMPLETE YES; EOS % 1.3 %; HEMATOCRIT 38.1 % (42-52); LYMPH % 8.3 %; LYMPH ABS # 1.04 K/uL (1.2-3.4); MEAN CORPUSCULAR HGB CONC 32.5 g/dl (32-36); MEAN PLATELET VOLUME 10.4 fL (7.4-10.4); MONO % 7.2 %; PLATELET COUNT 295 K/uL (130-400); RED BLOOD COUNT 4.43 M/uL (4.7-6.1); WHITE BLOOD COUNT 12.58 K/uL (4.8-10.8)
--- NOTE | 2016-12-01 08:18 | Surgery Progress Note ---
Surgery Progress Note Date of Service Dec 01, 2016. Subjective continues to have moderate to severe RLQ pain...no other complaints. afebrile. Objective Vital Signs: Date Time Temp Pulse Resp B/P Pulse Ox O2 Delivery O2 Flow Rate FiO2 11/30/16 23:52 36.9 95 16 131/77 93 Room Air 11/30/16 23:25 Room Air 11/30/16 18:00 37.5 100 16 141/85 92 Room Air 11/30/16 17:41 97 17 147/82 96 11/30/16 16:49 97 17 147/82 96 Room Air 11/30/16 15:21 85 16 144/81 94 Room Air 11/30/16 13:45 36.7 89 17 129/85 95 Room Air General Appearance: + mild distress Head: normocephalic, atraumatic Neck: supple Respiratory/Chest: no respiratory distress, no accessory muscle use Cardiovascular: no edema Abdomen: + pertinent finding (RLQ ttp with guading. no rebound) Incision(s): clean, dry, intact Extremities: normal range of motion, non-tender Laboratory Results: Results Past 24 Hours Test 11/30/16 14:20 11/30/16 14:24 12/01/16 05:40 Range/Units Urine Color DK YELLOW Urine Appearance CLEAR CLEAR Urine pH 5.5 4.5-7.5 Urine Specific [place] > 1.045 1.000-1.030 Urine Protein 2+ NEG Urine Glucose (UA) NEG NEG Urine Ketones 3+ NEG Urine Occult Blood NEG NEG Urine Nitrite NEG NEG Urine Bilirubin NEG NEG Urine Urobilinogen POS NEG Urine Leukocyte Esterase NEG NEG Urine WBC (Auto) 1-5 0-5 /hpf Urine RBC (Auto) 0-4 0-4 /hpf Urine Hyaline Casts (Auto) 5-10 0-5 /lpf Urine Epithelial Cells (Auto) >30 0-5 /lpf Urine Bacteria (Auto) NEG NEG White Blood Count 15.83 12.58 4.8-10.8 K/uL Red Blood Count 4.90 4.43 4.7-6.1 M/uL Hemoglobin 13.4 12.4 14.0-18.0 g/dL Hematocrit 41.1 38.1 42-52 % Mean Corpuscular Volume 83.9 86.0 80-100 fL Mean Corpuscular Hemoglobin 27.3 28.0 25-34 pg Mean Corpuscular Hemoglobin Concent 32.6 32.5 32-36 g/dl RDW Standard Deviation 51.7 53.5 36.4-46.3 fL RDW Coefficient of Variation 16.7 16.9 11.5-14.5 % Platelet Count 318 295 130-400 K/uL Mean Platelet Volume 10.8 10.4 7.4-10.4 fL Prothrombin Time 12.3 9.0-12.0 SECONDS Prothromb Time International Ratio 1.1 0.9-1.1 Activated Partial Thromboplast Time 33.0 21.0-31.0 SECONDS Partial Thromboplastin Ratio 1.3 Sodium Level 143 136-145 mmol/L Potassium Level 3.8 3.5-5.1 mmol/L Chloride Level 110 98-107 mmol/L Carbon Dioxide Level 26 21-32 mmol/L Anion Gap 7.0 3-11 mmol/L Blood Urea Nitrogen 23 7-18 mg/dl Creatinine 0.72 0.60-1.40 mg/dl Est Creatinine Clear Calc Drug Dose 123.9 ml/min Estimated GFR () 119.2 Estimated GFR (Non- 102.8 BUN/Creatinine Ratio 32.4 10-20 Random Glucose 141 70-99 mg/dl Bedside Lactic Acid Venous 0.84 0.90-1.70 mmol/L Calcium Level 9.2 8.5-10.1 mg/dl Total Bilirubin 0.8 0.2-1 mg/dl Aspartate Amino Transf (AST/SGOT) 18 15-37 U/L Alanine Aminotransferase (ALT/SGPT) 37 12-78 U/L Alkaline Phosphatase 109 45-117 U/L Total Protein 7.6 6.4-8.2 gm/dl Albumin 3.1 3.4-5.0 gm/dl Globulin 4.5 2.5-4.0 gm/dl Albumin/Globulin Ratio 0.7 0.9-2 Neutrophils (%) (Auto) 82.0 % Lymphocytes (%) (Auto) 8.3 % Monocytes (%) (Auto) 7.2 % Eosinophils (%) (Auto) 1.3 % Basophils (%) (Auto) 0.2 % Neutrophils # (Auto) 10.32 1.4-6.5 K/uL Lymphocytes # (Auto) 1.04 1.2-3.4 K/uL Monocytes # (Auto) 0.90 0.11-0.59 K/uL Eosinophils # (Auto) 0.16 0-0.5 K/uL Basophils # (Auto) 0.03 0-0.2 K/uL Immature Granulocyte % (Auto) 1.0 % Immature Granulocyte # (Auto) 0.13 0.00-0.02 K/uL Microbiology Results 11/30/16 Blood Culture, Received Pending 11/30/16 Blood Culture, Received Pending Assessment & Plan abdominal abcess s/p lap appy To OR today for washout/drain placement nonseptic IV antibiotics symptom control discussed risks /alternatives. pt agreeable. questions answered.
[2016-12-01] MEDS: ENOXAPARIN 40 MG/0.4 ML SYR SQ SCH (09:31)
[2016-12-01] MEDS ORDERED: MIDAZOLAM HCL 1 MG/ML 2ML VIAL ONE (14:18)
[2016-12-01] MEDS ORDERED: FENTANYL CITRATE INJ 50 MCG/1 ML 2 ML VIAL ONE ×2 (14:18→15:41)
--- NOTE | 2016-12-01 14:23 | History & Physical Bridge Note ---
H&P Re-Evaluation Bridge Note: I have examined the patient, reviewed the History & Physical and in the interval since the performance of the History & Physical I have noted the following changes of clinical significance: No changes noted
[2016-12-01] MEDS ORDERED: EpHEDrine SULFATE INJ 50 MG/ML AMP IV PRN (15:15)
[2016-12-01] MEDS ORDERED: ONDANSETRON INJ 2 MG/ML 2 ML VIAL IV PRN (15:15)
[2016-12-01] MEDS ORDERED: ATROPINE SULFATE 0.1 MG/ML 5ML SYR IV PRN (15:15)
[2016-12-01] MEDS ORDERED: PROMETHAZINE HCL INJ 6.25 MG in SODIUM CHLORIDE 0.9% 50ML 50 ML IV PRN (15:15)
[2016-12-01] MEDS ORDERED: ONDANSETRON INJ 2 MG/ML 2 ML VIAL ONE (15:20)
[2016-12-01] MEDS ORDERED: LIDOCAINE HCL 2% 2 ML VIAL (20MG/ML) ONE (15:20)
[2016-12-01] MEDS ORDERED: GLYCOPYRROLATE INJ 0.2 MG/ML VIAL ONE (15:20)
[2016-12-01] MEDS ORDERED: PROPOFOL IV EMULSION 10 MG/ML 20 ML VIAL IV ONE (15:20)
[2016-12-01] MEDS ORDERED: ROCURONIUM BROMIDE 10 MG/ML 5 ML VIAL ONE (15:20)
[2016-12-01] MEDS ORDERED: DEXAMETHASONE SOD INJ 4 MG/ML VIAL ONE (15:20)
[2016-12-01] MEDS ORDERED: NEOSTIGMINE METHYLSULFATE 5 MG/5 ML SYR ONE (15:20)
[2016-12-01] MEDS ORDERED: LABETALOL HCL IV 5 MG/ML 20ML ONE ×2 (15:20→16:21)
[2016-12-01] MEDS ORDERED: BUPIVACAINE/EPINEPHRINE 0.5% MPF 1:200,000 30 ML VIAL INJ ONE (15:41)
[2016-12-01] MEDS: FENTANYL CITRATE INJ 50 MCG/1 ML 2 ML VIAL IV PRN ×2 (16:07→16:15)
--- NOTE | 2016-12-01 16:08 | Anesthesiology Progress Note ---
Anesthesia Post Op Note Date & Time Dec 01, 2016 at 16:08 Vital Signs Pain Intensity: 7.0 Vital Signs Past 12 Hours Date Time Temp Pulse Resp B/P Pulse Ox O2 Delivery O2 Flow Rate FiO2 12/01/16 08:36 Room Air 12/01/16 07:30 37.4 76 17 156/79 93 Room Air Notes Mental Status: alert / awake / arousable, participated in evaluation Pt Amnestic to Procedure: Yes Nausea / Vomiting: adequately controlled Pain: adequately controlled Airway Patency, RR, SpO2: stable & adequate BP & HR: stable & adequate Hydration State: stable & adequate Anesthetic Complications: no major complications apparent
--- NOTE | 2016-12-01 16:25 | [facility] Operative Report ---
Operative Report Operative Date Dec 01, 2016. Pre-Operative Diagnosis ABDOMINAL ABSCESS Post-Operative Diagnosis infected abdominal hematoma Procedure(s) Performed laparoscopy with abdominal washout/placement of drain Surgeon DR VILLARREAL Cotton Ginner Surgeon(s) YANCY PIERRE PA-C Estimated Blood Loss 10 Findings moderate sized hematoma in RLQ as well as some old blood in pelvis. acute inflammatory phlegmon in RLQ Specimens CULTURE SENT FOR MICROBIOLOGY--C + S Anesthesia GET Complication(s) None Disposition Recovery Room / PACU I attest to the content of the Intraoperative Record and any orders documented therein. Any exceptions are noted below.
[2016-12-01] MEDS: ACETAMINOPHEN IV 1,000 MG in EMPTY BAG 0 ML IV SCH (17:04)
[2016-12-01] MEDS: HYDROmorphone INJ 1 MG/ML SYR IV PRN ×3 (19:07→23:31)
--- NOTE | 2016-12-01 20:37 | OPERATIVE REPORT ---
DATE OF OPERATION: 12/01/2016 PREOPERATIVE DIAGNOSIS: Suspected abdominal abscess, status post laparoscopic appendectomy. POSTOPERATIVE DIAGNOSIS: Suspected infected hematoma status post appendectomy. PROCEDURES PERFORMED: Laparoscopy with evacuation of abdominal hematoma, abdominal washout and placement of abdominal drain. SURGEON: Dr. Saleh. TANK OPERATOR: Raoul Interiano PA-C. ESTIMATED BLOOD LOSS: Minimal. COMPLICATIONS: No immediate complications. ANESTHESIA: General. The patient tolerated the procedure well. DESCRIPTION OF PROCEDURE: After informed consent was obtained, the patient was taken to the operating suite and placed in supine position. After successful intubation, the abdomen was sterilely prepped and draped in usual fashion. We used his old infraumbilical incision, reopened with an 11 blade scalpel. We were able to grab the old Vicryl stitch and cut it and opened the fascia. Two another 0 Vicryl stay sutures were placed on either side and a finger sweep was performed. A 12 mm Miguel Angel trocar was placed and the abdomen was insufflated to 18 mmHg. Laparoscope was inserted and the abdomen examined 360 degrees. We could see an inflammatory process in the right lower quadrant initially. I was able to place a suprapubic 5 mm trocar and a left lower quadrant 5 mm trocar through the old incision sites. The patient was then placed in Trendelenburg position. I began by looking in the pelvis where I saw some old blood pooled. It was liquified, it was a little bit murky. I was able to suction it out and irrigate the pelvis thoroughly. Our attention was then turned to the right lower quadrant where the primary inflammatory process was. I was able to peel away the terminal ileum, omentum as well as the right colon away from the right lower quadrant sidewall. This immediately released a gush of old blood. There was a hematoma kind of between the cecum and the right lower quadrant sidewall. I was able to suction this out. We did grab a piece of the hematoma and send it for Gram stain, culture and sensitivity. We continued to slowly peel the right colon away from the sidewall, releasing small amounts of old blood. We suctioned out the debris. Everything was acutely inflamed. He had basically a phlegmon from the omentum. I saw no actual pus and I saw no bile or succus. There was no evidence of a staple line leak or bowel injury. There was no subhepatic abscess. The left and right upper quadrants were pristine and all of the inflammatory process appeared to be in the right lower quadrant around the cecum. We continued to suction irrigate old debris and old blood out and thoroughly irrigated the right lower quadrant as well as the pelvis. Once we had the majority of debris out, I saw no other abnormalities and we placed a #10 flat Obed-Green drain from the right lower quadrant down into the pelvis. It was brought out through the left lower quadrant incision and secured using 2-0 nylon. The other trocars were removed and the abdomen was desufflated. The fascia of the camera port was closed using 0 Vicryl in a [id number] fashion. The wounds were irrigated and closed using 4-0 Monocryl. Skin glue was used as a dressing. The patient was awakened, extubated, and transferred to recovery in stable condition. I attest to the content of the Intraoperative Record and any orders documented therein. Any exceptio ns are noted below.
[2016-12-02] MEDS: ACETAMINOPHEN IV 1,000 MG in EMPTY BAG 0 ML IV SCH ×3 (00:50→16:38)
[2016-12-02] MEDS: D5W AND 1/2NSS + 20MEQ KCL 1,000 ML IV SCH ×3 (00:52→16:41)
[2016-12-02 01:15] VITALS: TEMP 36.9
[2016-12-02 03:29] VITALS: BP 117/75; PULSE 90; TEMP 37; O2SAT 91
[2016-12-02] MEDS: HYDROmorphone INJ 1 MG/ML SYR IV PRN ×5 (05:31→20:16)
[2016-12-02] MEDS: PIPERACILL/TAZOBAC IV 3.375 GM in DEXTROSE 5% 100ML 100 ML IV SCH ×3 (05:53→21:41)
[2016-12-02 06:49] LABS: BUN/CREATININE RATIO 6.7 (10-20); CALCIUM 8.9 mg/dl (8.5-10.1); CREATININE 0.79 mg/dl (0.60-1.40)
[2016-12-02 06:53] LABS: ALB/GLOB RATIO 0.6 (0.9-2)
--- NOTE | 2016-12-02 07:26 | Surgery Progress Note ---
Surgery Progress Note Date of Service Dec 02, 2016. Subjective Post OP Day: 1 + ambulating (in room), + diet (clears), + feeling well (RLQ pain improved), No nausea Objective Vital Signs: Date Time Temp Pulse Resp B/P Pulse Ox O2 Delivery O2 Flow Rate FiO2 12/02/16 03:29 37.0 90 15 117/75 91 Room Air 12/02/16 01:15 36.9 12/01/16 23:30 Room Air 12/01/16 23:23 37.5 102 16 126/79 95 Room Air 12/01/16 20:23 36.6 100 16 130/78 94 Nasal Cannula 2.0 12/01/16 18:53 36.9 94 16 130/78 94 Nasal Cannula 4.0 12/01/16 17:49 37.0 90 16 126/76 94 Nasal Cannula 4.0 12/01/16 17:26 36.9 88 16 135/80 93 Nasal Cannula 4.0 12/01/16 16:50 92 Nasal Cannula 4.0 12/01/16 16:50 36.6 96 16 136/77 92 Nasal Cannula 4.0 12/01/16 16:50 92 Nasal Cannula 4.0 12/01/16 16:36 37.2 12/01/16 16:33 142/74 12/01/16 16:30 93 12 94 12/01/16 16:30 87 12 12/01/16 16:28 143/80 12/01/16 16:25 91 21 12/01/16 16:25 90 21 96 12/01/16 16:23 151/76 12/01/16 16:20 94 14 96 12/01/16 16:20 92 14 12/01/16 16:18 163/84 12/01/16 16:15 96 16 98 12/01/16 16:15 96 16 12/01/16 16:13 170/80 12/01/16 16:10 94 19 12/01/16 16:10 94 19 98 12/01/16 16:08 165/83 12/01/16 16:05 93 21 12/01/16 16:05 94 21 97 12/01/16 16:03 167/85 12/01/16 16:00 94 23 12/01/16 16:00 94 23 96 12/01/16 15:58 166/79 2/2/17 15:57 174/83 12/01/16 15:55 37 92 18 174/83 93 Mask 10 12/01/16 08:36 Room Air 12/01/16 07:30 37.4 76 17 156/79 93 Room Air Physical Exam: THIERRY drainage (50 cc overnight) Abdomen: non distended, soft Incision(s): clean, dry Laboratory Results: Results Past 24 Hours Test 12/02/16 05:55 Range/Units Sodium Level 141 136-145 mmol/L Potassium Level 4.0 3.5-5.1 mmol/L Chloride Level 106 98-107 mmol/L Carbon Dioxide Level 25 21-32 mmol/L Anion Gap 10.0 3-11 mmol/L Blood Urea Nitrogen 5 7-18 mg/dl Creatinine 0.79 0.60-1.40 mg/dl Est Creatinine Clear Calc Drug Dose 112.9 ml/min Estimated GFR () 114.7 Estimated GFR (Non- 99.0 BUN/Creatinine Ratio 6.7 10-20 Random Glucose 137 70-99 mg/dl Calcium Level 8.9 8.5-10.1 mg/dl Total Bilirubin 0.6 0.2-1 mg/dl Aspartate Amino Transf (AST/SGOT) 32 15-37 U/L Alanine Aminotransferase (ALT/SGPT) 53 12-78 U/L Alkaline Phosphatase 214 45-117 U/L Total Protein 6.4 6.4-8.2 gm/dl Albumin 2.3 3.4-5.0 gm/dl Globulin 4.1 2.5-4.0 gm/dl Albumin/Globulin Ratio 0.6 0.9-2 Microbiology Results 12/01/16 Gram Stain - Preliminary, Resulted 12/01/16 Bacterial Culture, Resulted Pending Assessment & Plan s/p laparoscopic washout RLQ phlegmon/developing pelvic abscess HR, WBC improved continue IV abx advance diet as nathaly
[2016-12-02 07:49] VITALS: BP 147/78; PULSE 100; TEMP 37.2; O2SAT 91
--- NOTE | 2016-12-02 08:22 | Anesthesiology Progress Note ---
Anesthesia Post Op Note Date & Time Dec 02, 2016 at 08:22 Vital Signs Pain Intensity: 7.0 Vital Signs Past 12 Hours Date Time Temp Pulse Resp B/P Pulse Ox O2 Delivery O2 Flow Rate FiO2 12/02/16 07:49 37.2 100 18 147/78 91 Room Air 12/02/16 03:29 37.0 90 15 117/75 91 Room Air 12/02/16 01:15 36.9 12/01/16 23:30 Room Air 12/01/16 23:23 37.5 102 16 126/79 95 Room Air 12/01/16 20:23 36.6 100 16 130/78 94 Nasal Cannula 2.0 Notes Mental Status: alert / awake / arousable, participated in evaluation Pt Amnestic to Procedure: Yes Nausea / Vomiting: adequately controlled Pain: adequately controlled Airway Patency, RR, SpO2: stable & adequate BP & HR: stable & adequate Hydration State: stable & adequate Anesthetic Complications: no major complications apparent
[2016-12-02] MEDS: FERROUS GLUCONATE 324 MG TAB PO SCH (08:51)
[2016-12-02] MEDS: PANTOprazole SOD 40 MG TAB PO SCH (08:52)
[2016-12-02] MEDS: MULTIVITAMIN TAB PO SCH (08:52)
[2016-12-02] MEDS: ENOXAPARIN 40 MG/0.4 ML SYR SQ SCH (08:53)
[2016-12-02 11:53] LABS: BASO % 0.2 %; BASO ABS # 0.02 K/uL (0-0.2); COMPLETE YES; EOS % 0.2 %; HEMATOCRIT 37.3 % (42-52); LYMPH % 8.3 %; LYMPH ABS # 1.02 K/uL (1.2-3.4); MEAN CELL VOLUME 85.4 fL (80-100); MEAN CORPUSCULAR HEMOGLOBIN 27.7 pg (25-34); MEAN CORPUSCULAR HGB CONC 32.4 g/dl (32-36); MEAN PLATELET VOLUME 10.8 fL (7.4-10.4); MONO % 6.8 %; NEUT % 83.5 %; PLATELET COUNT 326 K/uL (130-400); RED BLOOD COUNT 4.37 M/uL (4.7-6.1); WHITE BLOOD COUNT 12.33 K/uL (4.8-10.8)
[2016-12-02] MEDS ORDERED: ONDA4TAB10 SL (12:33)
[2016-12-02] MEDS ORDERED: HYDR-5688 PO (12:33)
[2016-12-02 15:17] VITALS: BP 138/82; PULSE 79; TEMP 37.1; O2SAT 92
[2016-12-02] MEDS: HYDROmorphone INJ 2 MG/ML SYR/VIAL IV PRN ×2 (15:29→23:07)
[2016-12-02 23:34] VITALS: BP 127/79; PULSE 89; TEMP 37.1; O2SAT 92
[2016-12-03] MEDS: ACETAMINOPHEN IV 1,000 MG in EMPTY BAG 0 ML IV SCH ×3 (00:31→16:38)
[2016-12-03] MEDS: D5W AND 1/2NSS + 20MEQ KCL 1,000 ML IV SCH ×3 (01:05→17:54)
[2016-12-03] MEDS: HYDROmorphone INJ 1 MG/ML SYR IV PRN (01:08)
[2016-12-03] MEDS: PIPERACILL/TAZOBAC IV 3.375 GM in DEXTROSE 5% 100ML 100 ML IV SCH ×3 (05:25→21:40)
[2016-12-03] MEDS: HYDROmorphone INJ 2 MG/ML SYR/VIAL IV PRN ×5 (05:25→18:02)
[2016-12-03 07:29] VITALS: BP 145/80; PULSE 89; TEMP 37; O2SAT 92
[2016-12-03] MEDS: ENOXAPARIN 40 MG/0.4 ML SYR SQ SCH (08:59)
[2016-12-03] MEDS: MULTIVITAMIN TAB PO SCH (09:00)
[2016-12-03] MEDS: FERROUS GLUCONATE 324 MG TAB PO SCH (09:00)
[2016-12-03] MEDS: PANTOprazole SOD 40 MG TAB PO SCH (09:00)
[2016-12-03 09:53] LABS: BASO % 0.4 %; BASO ABS # 0.04 K/uL (0-0.2); COMPLETE YES; EOS % 4.3 %; HEMATOCRIT 36.6 % (42-52); LYMPH % 10.4 %; LYMPH ABS # 0.99 K/uL (1.2-3.4); MEAN CELL VOLUME 84.3 fL (80-100); MEAN CORPUSCULAR HEMOGLOBIN 27.9 pg (25-34); MEAN CORPUSCULAR HGB CONC 33.1 g/dl (32-36); MEAN PLATELET VOLUME 10.1 fL (7.4-10.4); MONO % 10.2 %; NEUT % 72.7 %; PLATELET COUNT 349 K/uL (130-400); RED BLOOD COUNT 4.34 M/uL (4.7-6.1); WHITE BLOOD COUNT 9.48 K/uL (4.8-10.8)
--- NOTE | 2016-12-03 10:09 | Surgery Progress Note ---
Surgery Progress Note Date of Service Dec 03, 2016. Subjective Post OP Day: 2 symptoms improving nathaly diet pain improving daily Objective Vital Signs: Date Time Temp Pulse Resp B/P Pulse Ox O2 Delivery O2 Flow Rate FiO2 12/03/16 08:01 Room Air 12/03/16 07:29 37.0 89 16 145/80 92 Room Air 12/02/16 23:34 37.1 89 18 127/79 92 Room Air 12/02/16 23:30 Room Air 12/02/16 15:30 Room Air 12/02/16 15:17 37.1 79 18 138/82 92 Room Air Physical Exam: THIERRY drainage (bloody as expected. no change) General Appearance: no apparent distress Head: normocephalic Neck: supple Abdomen: soft, + pertinent finding (expected tenderness) Incision(s): clean, dry, intact, no erythema Extremities: normal range of motion Laboratory Results: Results Past 24 Hours Test 12/03/16 09:43 Range/Units White Blood Count 9.48 4.8-10.8 K/uL Red Blood Count 4.34 4.7-6.1 M/uL Hemoglobin 12.1 14.0-18.0 g/dL Hematocrit 36.6 42-52 % Mean Corpuscular Volume 84.3 80-100 fL Mean Corpuscular Hemoglobin 27.9 25-34 pg Mean Corpuscular Hemoglobin Concent 33.1 32-36 g/dl Platelet Count 349 130-400 K/uL Mean Platelet Volume 10.1 7.4-10.4 fL Neutrophils (%) (Auto) 72.7 % Lymphocytes (%) (Auto) 10.4 % Monocytes (%) (Auto) 10.2 % Eosinophils (%) (Auto) 4.3 % Basophils (%) (Auto) 0.4 % Neutrophils # (Auto) 6.88 1.4-6.5 K/uL Lymphocytes # (Auto) 0.99 1.2-3.4 K/uL Monocytes # (Auto) 0.97 0.11-0.59 K/uL Eosinophils # (Auto) 0.41 0-0.5 K/uL Basophils # (Auto) 0.04 0-0.2 K/uL RDW Standard Deviation 50.2 36.4-46.3 fL RDW Coefficient of Variation 16.4 11.5-14.5 % Immature Granulocyte % (Auto) 2.0 % Immature Granulocyte # (Auto) 0.19 0.00-0.02 K/uL Assessment & Plan 12/03/16 clinically improving wbc today pending nathaly diet afebrile not ready for d/c yet..likely monday12/02/16 abdominal abcess s/p lap appy To OR today for washout/drain placement nonseptic IV antibiotics symptom control discussed risks /alternatives. pt agreeable. questions answered. abdominal abcess s/p lap appy To OR today for washout/drain placement nonseptic IV antibiotics symptom control discussed risks /alternatives. pt agreeable. questions answered.
[2016-12-03 15:02] VITALS: BP 149/90; PULSE 74; TEMP 36.9; O2SAT 93
[2016-12-03 23:00] VITALS: BP 149/90; PULSE 86; TEMP 37.1; O2SAT 94
[2016-12-04] MEDS: HYDROmorphone INJ 2 MG/ML SYR/VIAL IV PRN ×4 (00:03→21:38)
[2016-12-04] MEDS: ACETAMINOPHEN IV 1,000 MG in EMPTY BAG 0 ML IV SCH ×3 (01:44→17:40)
[2016-12-04] MEDS: D5W AND 1/2NSS + 20MEQ KCL 1,000 ML IV SCH (01:45)
[2016-12-04] MEDS: PIPERACILL/TAZOBAC IV 3.375 GM in DEXTROSE 5% 100ML 100 ML IV SCH ×3 (06:11→21:36)
[2016-12-04 06:23] LABS: BASO % 0.5 %; BASO ABS # 0.04 K/uL (0-0.2); COMPLETE YES; EOS % 4.4 %; HEMATOCRIT 36.3 % (42-52); IG% 2.9 %; LYMPH % 12.3 %; LYMPH ABS # 1.07 K/uL (1.2-3.4); MEAN CELL VOLUME 85.8 fL (80-100); MEAN CORPUSCULAR HEMOGLOBIN 27.9 pg (25-34); MEAN CORPUSCULAR HGB CONC 32.5 g/dl (32-36); MEAN PLATELET VOLUME 9.8 fL (7.4-10.4); MONO % 9.6 %; NEUT % 70.3 %; PLATELET COUNT 393 K/uL (130-400); RED BLOOD COUNT 4.23 M/uL (4.7-6.1); WHITE BLOOD COUNT 8.72 K/uL (4.8-10.8)
[2016-12-04 06:56] LABS: CREATININE 0.77 mg/dl (0.60-1.40)
[2016-12-04 07:15] VITALS: BP 134/75; PULSE 91; TEMP 36.9; O2SAT 92
--- NOTE | 2016-12-04 08:49 | SURGERY PROGRESS NOTE ---
DATE: 12/04/2016 Oliver is resting comfortably this morning. He still has some abdominal discomfort, especially on the right side. He said even though the drain comes in from midline, it seems to be going on the right side, which is what I expected where it was placed. His abdomen is a little bit distended. He is passing flatus. He has not moved his bowels yet. The drainage is serous, slightly sanguineous, it is not purulent looking. His last vitals showed a temperature of 36.9, pulse 91, respiratory rate 16, blood pressure 134/75, O2 sat is 92 on room air. LABORATORY STUDIES: His white count is 8.72, does not have any left shift, hemoglobin is 11.8, BUN is 5, creatinine 0.79. The micro as expected showed an E. coli and he is appropriately covered. At this point, will transfer and give him something p.o. for analgesic. Continue broad spectrum antibiotics, and at this point reevaluate him tomorrow and possibly discharge.
[2016-12-04] MEDS: OXYCODONE/ACETAMINOPHEN 5-325 TAB PO PRN ×3 (09:41→19:10)
[2016-12-04] MEDS: PANTOprazole SOD 40 MG TAB PO SCH (09:42)
[2016-12-04] MEDS: FERROUS GLUCONATE 324 MG TAB PO SCH (09:43)
[2016-12-04] MEDS: ENOXAPARIN 40 MG/0.4 ML SYR SQ SCH (09:44)
[2016-12-04] MEDS: MULTIVITAMIN TAB PO SCH (09:45)
[2016-12-04 14:59] VITALS: BP 135/79; PULSE 72; TEMP 36.8; O2SAT 93
[2016-12-04 16:15] VITALS: O2SAT 93
[2016-12-04 22:56] VITALS: BP 134/88; PULSE 72; TEMP 36.7; O2SAT 94
[2016-12-05] MEDS: ACETAMINOPHEN IV 1,000 MG in EMPTY BAG 0 ML IV SCH ×2 (00:54→08:54)
[2016-12-05] MEDS: PIPERACILL/TAZOBAC IV 3.375 GM in DEXTROSE 5% 100ML 100 ML IV SCH (06:28)
[2016-12-05] MEDS: HYDROmorphone INJ 1 MG/ML SYR IV PRN (06:29)
[2016-12-05] MEDS ORDERED: AMOX875T PO (06:55)
[2016-12-05 08:11] VITALS: BP 132/84; PULSE 84; TEMP 36.6; O2SAT 93
[2016-12-05] MEDS: FERROUS GLUCONATE 324 MG TAB PO SCH (08:53)
[2016-12-05] MEDS: MULTIVITAMIN TAB PO SCH (08:53)
[2016-12-05] MEDS: PANTOprazole SOD 40 MG TAB PO SCH (08:54)
[2016-12-05] MEDS: ENOXAPARIN 40 MG/0.4 ML SYR SQ SCH (08:56)
[2016-12-05 09:26] VITALS: O2SAT 93
[2016-12-05] MEDS: OXYCODONE/ACETAMINOPHEN 5-325 TAB PO PRN (09:42)
--- NOTE | 2016-12-05 10:22 | Surgery Progress Note ---
Surgery Progress Note Date of Service Dec 05, 2016. Subjective Post OP Day: 4 feeling better...pt uncomfortable with THIERRY drain and requesting removal .nathaly diet. overall feeling better each day. Objective Vital Signs: Date Time Temp Pulse Resp B/P Pulse Ox O2 Delivery O2 Flow Rate FiO2 12/05/16 09:26 93 Room Air 12/05/16 08:11 36.6 84 15 132/84 93 Room Air 12/05/16 07:15 Room Air 12/05/16 00:30 Room Air 12/04/16 22:56 36.7 72 16 134/88 94 Room Air 12/04/16 16:15 93 Room Air 12/04/16 14:59 36.8 72 16 135/79 93 Room Air Physical Exam: THIERRY drainage (serous now and minimal. ) General Appearance: no apparent distress Abdomen: non distended, soft Incision(s): clean, dry, intact, no erythema Extremities: normal range of motion, non-tender Assessment & Plan 12/05/16 continuing to do well afebrile and WBC now normal...THIERRY now serous/non-cloudy. OK to remove THIERYR nathaly diet ok for d/c on oral augmentin instructions given. f/u in office scheduled for 1 week. 12/03/16 clinically improving wbc today pending nathaly diet afebrile not ready for d/c yet..likely monday12/02/16 abdominal abcess s/p lap appy To OR today for washout/drain placement nonseptic IV antibiotics symptom control discussed risks /alternatives. pt agreeable. questions answered. 12/03/16 clinically improving wbc today pending nathaly diet afebrile not ready for d/c yet..likely monday12/02/16 abdominal abcess s/p lap appy To OR today for washout/drain placement nonseptic IV antibiotics symptom control discussed risks /alternatives. pt agreeable. questions answered.
[2016-12-05 10:29] VITALS: BP 132/84; PULSE 84; TEMP 36.6; O2SAT 93
--- NOTE | 2016-12-05 11:30 | DISCHARGE SUMMARY ---
DISCHARGE DIAGNOSIS: 1. Postoperative infected hematoma. 2. Status post appendicitis. DISCHARGE SUMMARY: This is a 56-year-old white male who was about a week status post laparoscopy appendectomy where he was evaluated in my office. He was not progressing as I had hoped and I ordered a white blood cell count which was markedly elevated at about 16,000. We did a stat CT scan which did reveal multiple fluid collections; the primary one being in the right lower quadrant, could not rule out abscess. He was subsequently admitted to the hospital, started on IV fluids, IV broad-spectrum antibiotics and pain medications. The following day he was taken to the operating room and underwent a laparoscopy for evaluation. He had a primary hematoma in the right lower quadrant which was evacuated surgically. It was sent for culture and would eventually grow out as expected E coli gram negative bacteria. We irrigated the entire abdomen during the procedure as well as left a drain. He was subsequently admitted to the hospital postoperatively for symptom control as well as IV antibiotics while cultures were pending. He slowly continued each day that he was in the hospital. He remained on IV antibiotics. His white count slowly came down and normalized. His drain went from bloody drainage down to normal serous fluid and was subsequently removed prior to discharge. On 12/05/2016, he was doing well, afebrile, the white count was back to normal and his THIERRY normalized and he was therefore deemed stable for discharge. He was sent home on oral Augmentin and was to followup with myself in the office in one week.
== END 2016-12-05 12:00 | disposition home or self-care (01) | DRG 909 ==
LOC: ENRESERVTM → ENRESERVDT → C.EDB 13:43 → C.MSW 16:11
PROVIDERS: ADMIT Surgery; ATTEND Surgery
PROC: 0W9J4ZX Drainage of Pelvic Cavity, Percutaneous Endoscopic Approach, Diagnostic (ICD-10-PCS; principal; 2016-12-01 12:45)
DX: K91.870 Postprocedural hematoma of a digestive system organ or structure following a digestive system procedure (principal); K21.9 Gastro-esophageal reflux disease without esophagitis; I10 Essential (primary) hypertension; Z98.84 Bariatric surgery status; Z82.49 Family history of ischemic heart disease and other diseases of the circulatory system; Y83.8 Other surgical procedures as the cause of abnormal reaction of the patient, or of later complication, without mention of misadventure at the time of the procedure

== ENCOUNTER → 2016-11-30 | Outpatient (CLI) | payer BC ==
[~2016-11-30] MED LIST changes: +AMOX875T PO; -ATEN-173 PO; -CHOL100010 PO; +CHOL200010 PO; -CLTP PO; +FERR325T18 PO; -FERR325T74 PO; -GLUCTAB18 PO; +HYDR-5688 PO; +ONDA4TAB10 SL; +TNR25 PO
[2016-11-30 11:22] LABS: BASO % 0.3 %; BASO ABS # 0.05 K/uL (0-0.2); COMPLETE YES; EOS % 0.8 %; HEMATOCRIT 42.6 % (42-52); LYMPH % 8.3 %; LYMPH ABS # 1.33 K/uL (1.2-3.4); MEAN CELL VOLUME 85.2 fL (80-100); MEAN CORPUSCULAR HEMOGLOBIN 28.2 pg (25-34); MEAN CORPUSCULAR HGB CONC 33.1 g/dl (32-36); MEAN PLATELET VOLUME 10.5 fL (7.4-10.4); MONO % 9.3 %; NEUT % 80.3 %; PLATELET COUNT 320 K/uL (130-400); WHITE BLOOD COUNT 15.99 K/uL (4.8-10.8)
== END | disposition home or self-care (01) ==
LOC: C.LAB 10:21
PROVIDERS: ATTEND Surgery
DX: K35.80 Unspecified acute appendicitis (principal)

== ENCOUNTER → 2016-12-30 | Outpatient (CLI) | payer BC ==
[~2016-12-30] MED LIST changes: +ONDA4TAB10 SL
[2016-12-30 17:57] LABS: ALT/SGPT 23 U/L (12-78); BLOOD UREA NITROGEN 10 mg/dl (7-18); BUN/CREATININE RATIO 13.7 (10-20); CARBON DIOXIDE 29 mmol/L (21-32); CHLORIDE 108 mmol/L (98-107); GLUCOSE 66 mg/dl (70-99); POTASSIUM 4.1 mmol/L (3.5-5.1); SODIUM 144 mmol/L (136-145)
[2016-12-30 18:06] LABS: ALB/GLOB RATIO 1.1 (0.9-2); ALKALINE PHOSPHATASE 74 U/L (45-117); AST/SGOT 21 U/L (15-37); THYROID STIMULATING HORMONE 0.411 uIu/ml (0.300-4.500); TOTAL IRON BINDING CAPACITY 388 mcg/dl (250-450)
[2016-12-30 18:55] LABS: BASO % 0.9 %; BASO ABS # 0.05 K/uL (0-0.2); COMPLETE YES; EOS % 2.7 %; HEMATOCRIT 42.9 % (42-52); IG% 0.5 %; LYMPH % 31.6 %; LYMPH ABS # 1.77 K/uL (1.2-3.4); MEAN CELL VOLUME 87.7 fL (80-100); MEAN CORPUSCULAR HEMOGLOBIN 27.8 pg (25-34); MEAN CORPUSCULAR HGB CONC 31.7 g/dl (32-36); MEAN PLATELET VOLUME 11.1 fL (7.4-10.4); MONO % 12.3 %; PLATELET COUNT 194 K/uL (130-400); RED BLOOD COUNT 4.89 M/uL (4.7-6.1)
== END | disposition home or self-care (01) ==
LOC: C.LABMFLN 13:40
PROVIDERS: ATTEND Family Medicine
DX: I10 Essential (primary) hypertension (principal); K21.0 Gastro-esophageal reflux disease with esophagitis; D64.9 Anemia, unspecified; Z98.84 Bariatric surgery status

== ENCOUNTER → 2017-07-07 | Outpatient (CLI) | payer BC ==
[~2017-07-07] MED LIST changes: -HYDR-5688 PO; -ONDA4TAB10 SL
[2017-07-07 13:31] LABS: BASO % 0.6 %; BASO ABS # 0.03 K/uL (0-0.2); COMPLETE YES; EOS % 2.2 %; HEMATOCRIT 47.5 % (42-52); IG% 0.6 %; LYMPH % 30.9 %; LYMPH ABS # 1.55 K/uL (1.2-3.4); MEAN CORPUSCULAR HEMOGLOBIN 30.9 pg (25-34); MEAN CORPUSCULAR HGB CONC 33.3 g/dl (32-36); MEAN PLATELET VOLUME 11.9 fL (7.4-10.4); MONO % 12.4 %; NEUT % 53.3 %; PLATELET COUNT 164 K/uL (130-400); RED BLOOD COUNT 5.11 M/uL (4.7-6.1); WHITE BLOOD COUNT 5.02 K/uL (4.8-10.8)
[2017-07-07 14:05] LABS: CHOLESTEROL/HDL RATIO 2.1; FERRITIN 24.2 ng/ml (8.0-388.0)
== END | disposition home or self-care (01) ==
LOC: C.LABMFLN 11:00
PROVIDERS: ATTEND Family Medicine
DX: Z13.220 Encounter for screening for lipoid disorders (principal); D50.9 Iron deficiency anemia, unspecified; I10 Essential (primary) hypertension

== ENCOUNTER → 2018-01-11 | Outpatient (CLI) | payer BC ==
[~2018-01-11] MED LIST changes: +PANT40TA2 PO; -PRT/40 PO
[2018-01-11 18:08] LABS: BASO % 0.7 %; BASO ABS # 0.04 K/uL (0-0.2); EOS % 1.3 %; EOS ABS # 0.07 K/uL (0-0.5); HEMATOCRIT 48.7 % (42-52); HEMOGLOBIN 16.1 g/dL (14.0-18.0); IG# 0.04 K/uL (0.00-0.02); LYMPH % 28.5 %; LYMPH ABS # 1.55 K/uL (1.2-3.4); MEAN CELL VOLUME 95.5 fL (80-100); MEAN CORPUSCULAR HEMOGLOBIN 31.6 pg (25-34); MEAN CORPUSCULAR HGB CONC 33.1 g/dl (32-36); MONO % 9.7 %; MONO ABS # 0.53 K/uL (0.11-0.59); NEUT % 59.1 %; NEUT ABS # 3.21 K/uL (1.4-6.5); PLATELET COUNT 160 K/uL (130-400); RED CELL DISTRIBUTION WIDTH CV 13.3 % (11.5-14.5); RED CELL DISTRIBUTION WIDTH SD 46.4 fL (36.4-46.3); WHITE BLOOD COUNT 5.44 K/uL (4.8-10.8)
== END | disposition home or self-care (01) ==
LOC: C.LABMFLN 12:48
PROVIDERS: ATTEND Physician Assistant
DX: D64.9 Anemia, unspecified (principal); E55.9 Vitamin D deficiency, unspecified